=== PATIENT | male | born 1980 | race Caucasian/White ===

== ENCOUNTER 2018-01-07 13:44 | Inpatient (IN) | payer OTHER ==
[2018-01-07] MEDS ORDERED: Sodium Chloride 0.9% 1,000 ML IV ONE ×3 (14:15→20:54)
[2018-01-07] MEDS ORDERED: Sodium Chloride 0.9% 1,000 ML ONE ×2 (14:26→14:57)
[2018-01-07 14:35] LABS: BASO # 0.1 K/uL (0.0-0.2); BASO % 0.7 % (0.0-2.0); LYMPH # 0.2 K/uL (1.0-4.3); LYMPH % 1.2 % (20.0-40.0); MEAN CELL VOLUME 86.8 fL (80.0-94.0); MEAN CORPUSCULAR HEMOGLOBIN 30.1 pg (27.0-31.0); MEAN CORPUSCULAR HGB CONC 34.7 g/dL (33.0-37.0); MEAN PLATELET VOLUME 9.9 fL (7.2-11.7); MONO # 0.8 K/uL (0.0-0.8); NEUT # 18.7 K/uL (1.8-7.0); NEUT % 94.1 % (50.0-75.0); NRBC % 0.1 % (0.0-2.0); PLATELET COUNT 237 K/uL (130-400); RBC 5.31 Mil/uL (4.40-5.90); RED CELL DISTRIBUTION WIDTH 12.7 % (11.5-14.5); WHITE BLOOD COUNT 19.8 K/uL (4.8-10.8)
[2018-01-07 14:40] LABS: PROTHROMBIN TIME 11.2 SECONDS (9.7-12.2)
[2018-01-07 14:44] LABS: ALB/GLOB RATIO 1.3 (1.0-2.1); ALBUMIN 4.9 g/dL (3.5-5.0); ALT/SGPT 52 U/L (21-72); AST/SGOT 95 U/L (17-59); BLOOD UREA NITROGEN 16 mg/dL (9-20); GFR AFRICAN-AMERICAN 55; GFR NON-AFRICAN AMERICAN 45; LIPASE 90 U/L (23-300)
[2018-01-07] MEDS ORDERED: Iohexol 350mg/ml 100 ML ONE (14:57)
[2018-01-07 15:02] LABS: BANDS 3 % (0-2); LYMPHOCYTE 1 % (20-40); MONOCYTE 4 % (0-10); NEUTROPHIL 92 % (50-75); TOTAL CELLS COUNTED 100
[2018-01-07 15:03] LABS: PLATELET ESTIMATE NORMAL (NORMAL)
[2018-01-07 15:05] LABS: ANISOCYTOSIS SLIGHT; GIANT PLATELETS PRESENT; POLYCHROMIC SLIGHT
[2018-01-07 15:06] LABS: LARGE PLATELETS PRESENT
--- NOTE | 2018-01-07 15:33 | RAD ---
HISTORY: adm COMPARISON: No prior. FINDINGS: LUNGS: Right basilar atelectasis and or infiltrate. Questionable small right-sided effusion. Minimal left basilar atelectasis. PLEURA: As above. No apparent pneumothorax CARDIOVASCULAR: Normal. OSSEOUS STRUCTURES: No significant abnormalities. VISUALIZED UPPER ABDOMEN: Normal. OTHER FINDINGS: None. IMPRESSION: Right lower lobe atelectasis and or infiltrate with questionable small right-sided effusion. Minimal left basilar atelectasis.
--- NOTE | 2018-01-07 16:11 | C.PDOC ---
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 Patient underwent botox surgery to his rectal area four days ago for anal fissures. Patient notes he has been asymptomatic since then. He reports back pain (unchanged from usual) and denies fever, chills, cough. + recent travel though not to endemic population areas. Time Seen by Provider: 01/07/18 13:49 Chief Complaint (Nursing): GI Problem History Per: Patient History/Exam Limitations: no limitations Onset/Duration Of Symptoms: Hrs (4) Current Symptoms Are (Timing): Still Present Additional History Per: Patient Past Medical History Reviewed: Historical Data, Nursing Documentation, Vital Signs Vital Signs: Last Vital Signs Temp 98.6 F 01/07/18 18:08 Pulse 71 01/07/18 18:30 Resp 18 01/07/18 18:08 BP 126/81 01/07/18 18:08 Pulse Ox 99 01/07/18 23:27 - Medical History PMH: No Chronic Diseases Surgical History: No Surg Hx Family History: States: Unknown Family Hx - Social History Hx Alcohol Use: Yes Hx Substance Use: No - Immunization History Hx Influenza Vaccination: No Review Of Systems Constitutional: Negative for: Fever, Chills Gastrointestinal: Positive for: Hematemesis Musculoskeletal: Positive for: Back Pain Physical Exam - Physical Exam Appears: Non-toxic, No Acute Distress, Chronically Ill Skin: Warm, Dry, Other (icteric ) Head: Atraumatic, Normacephalic Nose: Other (dry blood noted ) Oral Mucosa: Moist, Other (dry blood noted ) Neck: Supple Chest: Symmetrical, No Deformity, No Tenderness Cardiovascular: Rhythm Regular, No Murmur Respiratory: Normal Breath Sounds, No Rales, No Rhonchi, No Wheezing Gastrointestinal/Abdominal: Soft, No Tenderness, No Guarding, No Rebound Rectal: No Other (perineal pain ) Extremity: Normal ROM, Capillary Refill (less than 2 seconds ) Neurological/Psych: Oriented x3, Normal Speech, Normal Cognition ED Course And Treatment - Laboratory Results Result Diagrams: 01/07/18 14:23 01/07/18 14:23 Lab Interpretation: Abnormal ECG: Interpreted By Me ECG Rhythm: Sinus Rhythm ECG Interpretation: Normal Rate From EC O2 Sat by Pulse Oximetry: 99 (on RA) Pulse Ox Interpretation: Normal - Radiology CXR: Interpreted by Me CXR Interpretation: Yes: No Acute Disease, Infiltrates (+RLL) Progress Note: protonix, rocephin, azithro, IVF's Reevaluation Time: 16:47 Reassessment Condition: Improved - Physician Consult Information Outcome Of Conversation: 1645: d/w Dr. Holden, Medicine [employer], ok to admit. Medical Decision Making Medical Decision Making: RLL PNA on CXR leukocytosis ? related to pna or vomiting mild infiltrate on RLL may be minimal due to dehydration May explain pt so ill appearing empiric ABX coverage for CAP Upper GIB: hematemasis normal hgb enlarged liver on CT, hiatal hernia HGB 16 false normal from dehydration vs not sig GIB ? underlying ETOH abuse Protonix, NPO, IVF's, 2 large bore IV, GI consult, follow CBC Acute renal insuffiency: Creat 1.7 from normal baseline (unknown) but pt had elective surgery 4 days ago, so implied it was normal) PT clinically dry continue hydration follow CMP Tox: ? ETOH abuse: ETOH level zero today AST/ALT 95/52 ? 2:1 ratio typical of alcohol abuse consider CIWA protocol or PRN benzo's if/when pt becomes symptomatic. Disposition Doctor Will See Patient In The: Hospital Counseled Patient/Family Regarding: Studies Performed, Diagnosis - Disposition Disposition: HOSPITALIZED Disposition Time: 16:52 Condition: GOOD - Clinical Impression Clinical Impression: Gastrointestinal hemorrhage, Acute renal insufficiency, Pneumonia - Scribe Statement The provider has reviewed the documentation as recorded by the Jeanethibe (Marisol Smith) Provider Attestation: All medical record entries made by the Jeanethibe were at my direction and personally dictated by me. I have reviewed the chart and agree that the record accurately reflects my personal performance of the history, physical exam, medical decision making, and the department course for this patient. I have also personally directed, reviewed, and agree with the discharge instructions and disposition.
--- NOTE | 2018-01-07 16:20 | CT ---
PROCEDURE: CT abdomen pelvis 01/07/2018 HISTORY: Vomiting; rectal botox 4 days ago-fissure. COMPARISON: No prior study available for comparison TECHNIQUE: Contiguous axial images of the abdomen and pelvis performed without oral or intravenous contrast material. Additional 2D sagittal and coronal reformats generated. This CT exam was performed using one or more of the following dose reduction techniques: Automated exposure control, adjustment of the mA and/or kV according to patient size, and/or use of iterative reconstruction technique. Radiation dose: Total exam DLP = 577.66 mGy-cm. This CT exam was performed using one or more of the following dose reduction techniques: Automated exposure control, adjustment of the mA and/or kV according to patient size, and/or use of iterative reconstruction technique. . FINDINGS: LOWER THORAX: Mild atelectasis both lung bases right greater than left. No evidence of basilar pneumothorax. No significant effusion Small hiatal hernia with slight wall thickening of the distal esophagus likely due to protrusion of gastric mucosa. Possibility of esophagitis not excluded. LIVER: Liver is enlarged measuring just over 20 cm in CC dimension. No obvious hepatic mass or collection seen on this noncontrast study. GALLBLADDER AND BILE DUCTS: Gallbladder is physiologically distended. No evidence of intraluminal gallbladder calculi. PANCREAS: Pancreas appears slightly atrophic and fatty replaced. No pancreatic masses collections or calcifications. SPLEEN: Spleen is borderline/mildly enlarged measuring 12 0.2 cm. No splenic mass collection or calcification ADRENALS: No adrenal lesions. KIDNEYS AND URETERS: Kidneys demonstrate relatively symmetric size. No evidence of nephrolithiasis or hydronephrosis. BLADDER: Urinary bladder is physiologically distended. No evidence of intraluminal urinary bladder calculi. REPRODUCTIVE: Prostate gland measures approximately 4.6 cm in transverse dimension. APPENDIX: Normal appendix best seen on coronal image number [id number]. No periappendiceal inflammatory changes. BOWEL: Evaluation of the bowel is limited due to the lack of oral contrast material. Stomach is incompletely distended which in part accounts for thick-walled appearance. Gastritis not excluded. Visualized loops of small bowel exhibit normal contour and caliber. No evidence of acute mechanical small bowel obstruction. A moderate amount of dry stool seen throughout the large bowel consistent with constipation. No definitive evidence of abnormal mural wall thickening. PERITONEUM: Unremarkable. No fluid collection. No free air. There is tiny fat containing umbilical hernia. The the the LYMPH NODES: There are a few small mesenteric lymph nodes the the right abdomen nonspecific. VASCULATURE: Unremarkable. No aortic aneurysm. BONES: No fracture or destructive lesion. OTHER FINDINGS: None. IMPRESSION: Mild atelectasis both lung bases right greater than left. Mild hepatomegaly. Borderline /mild splenomegaly as above. Findings consistent with constipation. . Small hiatal hernia with slight wall thickening of the distal esophagus likely due to protrusion of gastric mucosa. Esophagitis not excluded. .
[2018-01-07 16:21] LABS: SQUAMOUS EPITHIAL < 1 /hpf (0-5); URINE AMORPHOUS SEDIMENT RARE /ul (<OCC); URINE BACTERIA OCC (<OCC); URINE BILIRUBIN NEGATIVE (NEGATIVE); URINE BLOOD 3+ (NEGATIVE); URINE CLARITY Hazy (Clear); URINE COLOR Yellow (YELLOW); URINE GLUCOSE (UA) 3+ mg/dL (Normal); URINE LEUKOCYTE ESTERASE NEG Leu/uL (Negative); URINE PROTEIN 2+ mg/dL (NEGATIVE); URINE UROBILINOGEN NORMAL mg/dL (0.2-1.0)
[2018-01-07 16:26] LABS: BARBITURATES, UR NEGATIVE (NEGATIVE); BENZODIAZEPINES, UR NEGATIVE (NEGATIVE); OPIATES, UR NEGATIVE (NEGATIVE); PHENCYCLIDINE, UR NEGATIVE (NEGATIVE)
[2018-01-07] MEDS ORDERED: Azithromycin 500 MG in Sodium Chloride 0.9% 250 ML IV STA (16:41)
[2018-01-07] MEDS ORDERED: cefTRIAXone IV 1 gm in Dextros 50 ML IV ONE (16:41)
[2018-01-07] MEDS ORDERED: Dextrose 5%/0.9% NS 1,000 ML IV SCH (17:15)
[2018-01-07] MEDS ORDERED: Sodium Chloride 0.9% 1,000 ML IV SCH (21:00)
[2018-01-07] MEDS: Dextrose 5%/0.9% NS 1,000 ML IV SCH (21:15)
[2018-01-08] MEDS: Dextrose 5%/0.9% NS 1,000 ML IV SCH ×3 (04:00→18:02)
[2018-01-08 07:51] LABS: INR 1.1; PROTHROMBIN TIME 12.2 SECONDS (9.7-12.2)
[2018-01-08 07:54] LABS: MEAN CELL VOLUME 88.4 fL (80.0-94.0); MEAN CORPUSCULAR HEMOGLOBIN 30.8 pg (27.0-31.0); MEAN CORPUSCULAR HGB CONC 34.9 g/dL (33.0-37.0); MEAN PLATELET VOLUME 10.8 fL (7.2-11.7); PLATELET COUNT 147 K/uL (130-400); RED CELL DISTRIBUTION WIDTH 12.7 % (11.5-14.5)
[2018-01-08 08:03] LABS: CALCIUM 7.8 mg/dl (8.6-10.4)
[2018-01-08] MEDS: Magnesium Citrate Oral SOL (300 ml) PO SCH ×2 (09:40→14:09)
[2018-01-08] MEDS: Azithromycin 500 MG in Sodium Chloride 0.9% 250 ML IVPB SCH (10:00)
--- NOTE | 2018-01-08 10:01 | PN ---
DATE: 01/08/2018 LOCATION: 652, bed A. SUBJECTIVE: This is a 37-year-old male seen and examined in rounds today, with complaint of abdominal pain, dyspepsia, nausea, but no reported active bleeding or vomiting this morning. The entire chart is reviewed including, but not limited to the most recent lab and radiology study results, current and the previous medication list, current and the previous medical events. Today's lab results still pending; however, the patient had leukocytosis at the time of the admission. The entire chart is reviewed including the radiology study results also. PHYSICAL EXAMINATION: GENERAL: A 37-year-old male, awake, alert, oriented. VITAL SIGNS: Temperature 99.3, heart rate 82, respiratory rate 20 to 22, blood pressure 120/66. HEENT: Showed mildly pale, dry oral mucous membranes. Nonicteric sclerae. LUNGS: Few scattered mild crepitation. Decreased air entry at bases. HEART: Positive S1 and S2. ABDOMEN: Soft with generalized tenderness. No mass or organomegaly. No rebound tenderness or guarding. RECTAL: The patient refused. EXTREMITIES: Without edema, clubbing or cyanosis. NEUROLOGIC: No reported new neurological deficits, sensory or motor. No reported focal deficits. IMPRESSION: 1. Hematemesis of coffee-ground material indicative of upper gastrointestinal tract bleeding, to rule out duodenal versus gastric ulcer, to rule out bleeding esophageal varices. 2. Reported history of alcohol abuse. 3. Mild hepatomegaly by radiology study results. 4. Abnormal CAT scan of the abdomen and pelvis. Please see official report. 5. Possible right lower lobe pneumonia with a small right-sided effusion. SUGGESTIONS: 1. Agree with your plan. 2. Liquid diet as tolerated. 3. Patient for upper endoscopy at a.m. 4. Further recommendations to follow. Neftaly Ochoa MD
[2018-01-08 10:34] LABS: ALB/GLOB RATIO 1.2 (1.0-2.1); ALBUMIN 3.5 g/dL (3.5-5.0); BILIRUBIN,DIRECT 0.4 mg/dL (0.0-0.4)
[2018-01-08 10:43] LABS: ANISOCYTOSIS SLIGHT; BANDS 5 % (0-2); LARGE PLATELETS PRESENT; LYMPHOCYTE 7 % (20-40); MONOCYTE 9 % (0-10); NEUTROPHIL 79 % (50-75); PLATELET ESTIMATE NORMAL (NORMAL); TOTAL CELLS COUNTED 100
--- NOTE | 2018-01-08 15:12 | CP.PCM.CON ---
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 Patient underwent botox surgery to his rectal area four days ago for anal fissures. Patient notes he has been asymptomatic since then. He reports back pain (unchanged from usual) and denies fever, chills, cough. last travel to [place] 1 month ago denies ill contacs claims to be social drinker lives alone works [employer] [employer] [employer] Review of Systems - Review of Systems All systems: reviewed and no additional remarkable complaints except - Constitutional Constitutional: As Per HPI - EENT Eyes: absent: As Per HPI, Blind Spots, Blurred Vision, Change in Vision, Decreased Night Vision, Diplopia, Discharge, Dry Eye, Exophthalmos, Floaters, Irritation, Itchy Eyes, Loss of Peripheral Vision, Pain, Photophobia, Requires Corrective Lenses, Sees Flashes, Spots in Vision, Tunnel Vision, Other Visual Disturbances, Loss of Vision, Other Ears: absent: As Per HPI, Decreased Hearing, Ear Discharge, Ear Pain, Tinnitus, Abnormal Hearing, Disequilibrium, Dizziness, Other Nose/Mouth/Throat: absent: As Per HPI, Epistaxis, Nasal Congestion, Nasal Discharge, Nasal Obstruction, Nasal Trauma, Nose Pain, Post Nasal Drip, Sinus Pain, Sinus Pressure, Bleeding Gums, Change in Voice, Dental Pain, Dry Mouth, Dysphagia, Halitosis, Hoarsness, Lip Swelling, Mouth Lesions, Mouth Pain, Odynophagia, Sore Throat, Throat Swelling, Tongue Swelling, Facial Pain, Neck Pain, Neck Mass, Other - Cardiovascular Cardiovascular: absent: As Per HPI, Acrocyanosis, Chest Pain, Chest Pain at Rest , Chest Pain with Activity, Claudication, Diaphoresis, Dyspnea, Dyspnea on Exertion, Edema, Irregular Heart Rhythm, Pain Radiating to Arm/Neck/Jaw, Leg Edema, Leg Ulcers, Lightheadedness, Orthopnea, Palpitations, Paroxysmal Nocturnal Dyspnea, Pedal Edema, Radiating Pain, Rapid Heart Rate, Slow Heart Rate, Syncope, Other - Respiratory Respiratory: As Per HPI, Cough - Gastrointestinal Gastrointestinal: As Per HPI, Abdominal Pain, Vomiting - Genitourinary Genitourinary: absent: As Per HPI, Change in Urinary Stream, Difficulty Urinating, Dysuria, Flank Pain, Hematuria, Pyuria, Nocturia, Urinary Incontinence, Urinary Frequency, Urinary Hesitance, Urinary Urgency, Voiding Freq/Small Amts, Freq UTI, Hx Renal/Bladder Calculi, Hx /Renal Surgery, Bladder Distension, Other - Musculoskeletal Musculoskeletal: absent: As Per HPI, Abnormal Gait, Arthralgias, Atrophy, Back Pain, Deformity, Joint Swelling, Limited Range of Motion, Loss of Height, Muscle Cramps, Muscle Weakness, Myalgias, Neck Pain, Numbness, Radiating Pain into Limb, Stiffness, Tingling, Other - Integumentary Integumentary: absent: As Per HPI, Acne, Alopecia, Bleeding Lesions, Change in Hair, Change in Nails, Change in Pigmentation, Changing Lesions, Dry Skin, Erythema, Furuncle, Hirsutism, Lesions, New Lesions, Non-Healing Lesions, Photosensitivity, Pruritus, Rash, Skin Pain, Skin Ulcer, Sores, Striae, Swelling , Unusual Bruising, Wounds, Jaundice, Other - Neurological Neurological: absent: As Per HPI, Abnormal Gait, Abnormal Hearing, Abnormal Movements, Abnormal Speech, Behavioral Changes, Burning Sensations, Confusion, Convulsions, Disequilibrium, Dizziness, Numbness, Focal Weakness, Frequent Falls , Headaches, Lack of Coordination, Loss of Vision, Memory Loss, Paresthesias, Radicular Pain, Restless Legs, Sensory Deficit, Syncope, Tingling, Tremor, Vertigo, Weakness, Other Visual Disturbances, Other - Psychiatric Psychiatric: absent: As Per HPI, Abnormal Sleep Pattern, Anhedonia, Anxiety, Auditory Hallucinations, Behavioral Changes, Change in Appetite, Change in Libido, Confusion, Depression, Difficulty Concentrating, Hallucinations, Homicidal Ideation, Hopelessness, Irritability, Memory Loss, Mood Swings, Panic Attacks, Paranoia, Suicidal Ideation, Visual Hallucinations, Tactile Hallucinations, Other - Endocrine Endocrine: absent: As Per HPI, Change in Body Appearance, Change in Libido, Cold Intolorance, Deepening of Voice, Excessive Sweating, Fatigue, Flushing, Heat Intolorance, Increase in Ring/Shoe/Hat Size, Palpitations, Polydipsia, Polyphagia, Polyuria, Other - Hematologic/Lymphatic Hematologic: absent: As Per HPI, Easy Bleeding, Easy Bruising, Lymphadenopathy, Other Past Patient History - Past Medical History & Family History Past Medical History?: No - Past Social History Smoking Status: Never Smoked - MUSCULOSKELETAL/RHEUMATOLOGICAL Hx Falls: No - PSYCHIATRIC Hx Substance Use: No - SURGICAL HISTORY Hx Surgeries: Yes Other/Comment: ANAL FISSURE - ANESTHESIA Hx Anesthesia: Yes Hx Anesthesia Reactions: No Hx Malignant Hyperthermia: No Has any member of the family had a problem w/ anesthesia?: No Meds Allergies/Adverse Reactions: Allergies Allergy/AdvReac Type Severity Reaction Status Date / Time No Known Allergies Allergy Verified 01/07/18 13:56 - Medications Medications: Current Medications Ceftriaxone Sodium 1 gm/ (Sodium Chloride) 100 mls @ 100 mls/hr IVPB Q24H JEANE PRN Reason: Protocol Last Admin: 01/08/18 12:00 Dose: 100 mls/hr Azithromycin 500 mg/ Sodium (Chloride) 250 mls @ 167 mls/hr IVPB Q24H JEANE PRN Reason: Protocol Last Admin: 01/08/18 10:00 Dose: 167 mls/hr Dextrose/Sodium Chloride (Dextrose 5%/0.9% Ns 1000 Ml) 1,000 mls @ 100 mls/hr IV .Q10H [facility] Last Admin: 01/08/18 06:38 Dose: Not Given Ondansetron HCl (Zofran Inj) 8 mg IVP Q6 JEANE Last Admin: 01/08/18 12:00 Dose: 8 mg Pantoprazole Sodium (Protonix Inj) 40 mg IVP BID [facility] Last Admin: 01/08/18 11:18 Dose: 40 mg Tramadol HCl (Ultram) 50 mg PO Q6 PRN PRN Reason: Pain, severe (8-10) Last Admin: 01/07/18 20:57 Dose: 50 mg Physical Exam - Constitutional Appears: Non-toxic, No Acute Distress - Head Exam Head Exam: ATRAUMATIC, NORMOCEPHALIC - Eye Exam Eye Exam: PERRL. absent: Scleral icterus - ENT Exam ENT Exam: Mucous Membranes Dry, Normal External Ear Exam - Neck Exam Neck exam: Negative for: Lymphadenopathy - Respiratory Exam Respiratory Exam: Decreased Breath Sounds, Rhonchi - Cardiovascular Exam Cardiovascular Exam: REGULAR RHYTHM, +S1, +S2 - GI/Abdominal Exam GI & Abdominal Exam: Diminished Bowel Sounds, Distended, Soft. absent: Rebound , Rigid, Tenderness - Rectal Exam Rectal Exam: Deferred - Exam Exam: NORMAL INSPECTION - Extremities Exam Extremities exam: Positive for: pedal pulses present. Negative for: calf tenderness, pedal edema, tenderness - Back Exam Back exam: absent: CVA tenderness (L), CVA tenderness (R), paraspinal tenderness - Neurological Exam Neurological exam: Alert, CN II-XII Intact, Oriented x3, Reflexes Normal - Psychiatric Exam Psychiatric exam: Depressed - Skin Skin Exam: Dry Results - Vital Signs Recent Vital Signs: Last Vital Signs Temp 98.3 F 01/08/18 07:15 Pulse 81 01/08/18 07:15 Resp 18 01/08/18 07:15 BP 110/70 01/08/18 07:15 Pulse Ox 97 01/08/18 07:15 - Labs Result Diagrams: 01/08/18 07:39 01/08/18 07:39 Labs: Laboratory Results - last 24 hr 01/07/18 01/07/18 01/07/18 15:41 15:41 Unknown WBC RBC Hgb Hct MCV MCH MCHC RDW Plt Count MPV Neutrophils % (Manual) Band Neutrophils % Lymphocytes % (Manual) Monocytes % (Manual) Platelet Estimate Large Platelets Anisocytosis (manual) PT INR APTT Sodium Potassium Chloride Carbon Dioxide Anion Gap BUN Creatinine Est GFR ( Amer) Est GFR (Non-Af Amer) Random Glucose Calcium Total Bilirubin Direct Bilirubin AST ALT Alkaline Phosphatase Total Protein Albumin Globulin Albumin/Globulin Ratio Amylase Lipase Urine Color Yellow Urine Clarity Hazy Urine pH 5.0 Ur Specific Viola 1.009 Urine Protein 2+ H Urine Glucose (UA) 3+ H Urine Ketones Negative Urine Blood 3+ H Urine Nitrate Negative Urine Bilirubin Negative Urine Urobilinogen Normal Ur Leukocyte Esterase Neg Urine WBC (Auto) < 1 Urine RBC (Auto) 31 H Ur Squamous Epith Cells < 1 Amorphous Sediment Rare H Urine Bacteria Occ H Urine Opiates Screen Negative Urine Methadone Screen Negative Ur Barbiturates Screen Negative Ur Phencyclidine Scrn Negative Ur Amphetamines Screen Negative U Benzodiazepines Scrn Negative U Oth Cocaine Metabols Negative U Cannabinoids Screen Negative Influenza Typ A,B (EIA) Negative for flu a/b 01/08/18 01/08/18 01/08/18 07:39 07:39 07:39 WBC 15.0 H RBC 4.20 L Hgb 13.0 D Hct 37.1 MCV 88.4 MCH 30.8 MCHC 34.9 RDW 12.7 Plt Count 147 MPV 10.8 Neutrophils % (Manual) 79 H Band Neutrophils % 5 H Lymphocytes % (Manual) 7 L Monocytes % (Manual) 9 Platelet Estimate Normal Large Platelets Present Anisocytosis (manual) Slight PT 12.2 INR 1.1 APTT 28 Sodium 141 Potassium 4.3 Chloride 110 H Carbon Dioxide 20 L Anion Gap 16 BUN 19 Creatinine 2.3 H Est GFR ( Amer) 38 Est GFR (Non-Af Amer) 32 Random Glucose 105 Calcium 7.8 L Total Bilirubin 0.8 Direct Bilirubin 0.4 AST 506 H D ALT 123 H D Alkaline Phosphatase 41 Total Protein 6.4 Albumin 3.5 D Globulin 2.9 Albumin/Globulin Ratio 1.2 Amylase 83 Lipase 45 Urine Color Urine Clarity Urine pH Ur Specific Viola Urine Protein Urine Glucose (UA) Urine Ketones Urine Blood Urine Nitrate Urine Bilirubin Urine Urobilinogen Ur Leukocyte Esterase Urine WBC (Auto) Urine RBC (Auto) Ur Squamous Epith Cells Amorphous Sediment Urine Bacteria Urine Opiates Screen Urine Methadone Screen Ur Barbiturates Screen Ur Phencyclidine Scrn Ur Amphetamines Screen U Benzodiazepines Scrn U Oth Cocaine Metabols U Cannabinoids Screen Influenza Typ A,B (EIA) Assessment & Plan (1) Acute renal insufficiency Status: Acute (2) Gastrointestinal hemorrhage Status: Acute (3) Pneumonia Status: Acute - Assessment and Plan (Free Text) Assessment: r/o Legionella r/o aspiration syndrome abnormal LFT's- etoh ? viral ? hydration check cultures cont IV antibiotics serologies amylase/ lipase GI eval
[2018-01-08 17:32] LABS: BASO % 0.3 % (0.0-2.0); HEMOGLOBIN 13.1 g/dL (12.0-18.0); LYMPH # 0.9 K/uL (1.0-4.3); LYMPH % 7.6 % (20.0-40.0); MEAN CORPUSCULAR HEMOGLOBIN 30.4 pg (27.0-31.0); MEAN CORPUSCULAR HGB CONC 34.6 g/dL (33.0-37.0); MEAN PLATELET VOLUME 10.7 fL (7.2-11.7); MONO # 0.5 K/uL (0.0-0.8); MONO % 4.5 % (0.0-10.0); NEUT # 10.4 K/uL (1.8-7.0); NEUT % 87.6 % (50.0-75.0); PLATELET COUNT 143 K/uL (130-400); RBC 4.32 Mil/uL (4.40-5.90); RED CELL DISTRIBUTION WIDTH 12.6 % (11.5-14.5); WHITE BLOOD COUNT 11.9 K/uL (4.8-10.8)
[2018-01-08 17:58] LABS: LYMPHOCYTE 6 % (20-40); MONOCYTE 4 % (0-10); NEUTROPHIL 90 % (50-75); TOTAL CELLS COUNTED 100
[2018-01-08 17:59] LABS: ANISOCYTOSIS SLIGHT; LARGE PLATELETS PRESENT; PLATELET ESTIMATE NORMAL (NORMAL)
[2018-01-08 18:17] LABS: HEPATITIS B SURFACE AG Negative (NEGATIVE)
[2018-01-08 18:21] LABS: ALB/GLOB RATIO 1.1 (1.0-2.1); ALBUMIN 3.4 g/dL (3.5-5.0); CALCIUM 8.4 mg/dl (8.6-10.4)
[2018-01-08 18:23] LABS: HEPATITIS A IGM NEGATIVE (NEGATIVE); HEPATITIS B CORE AB NEGATIVE (NEGATIVE)
[2018-01-08 18:29] LABS: TROPONIN I 0.038 ng/mL (0.00-0.120)
[2018-01-08 18:35] LABS: HEPATITIS C ANTIBODY NEGATIVE (NEGATIVE)
[2018-01-08] MEDS: Dextrose 5%/0.45% NS 1,000 ML IV SCH (19:00)
--- NOTE | 2018-01-09 03:56 | CON ---
DATE: 01/07/2018 LOCATION: 652, Bed A. That is from Dr. Neftaly Ochoa to Dr. Alvaro Holden. I was called for GI consultation by the admitting medical team. The patient is seen and fully examined on 01/07/[address] Holden. The entire chart is reviewed including but not limited to the most recent lab and radiology study results, current and the previous medication list, current and the previous medical events, allergy to medication list as well as all the available current and the previous medical records. Case discussed with the staff at length. HISTORY OF PRESENT ILLNESS: This is a 37-year-old male who was admitted to the hospital through the emergency room with a main complaint of abdominal pain, nausea, vomiting of fresh and old blood, last alcohol intake was status post buttock surgery to the rectal area about 4 days ago for anal fissure but with a complaint of lower back pain, postprandial abdominal distention, generalized weakness, and malaise for the last few days prior to his admission. No reported actual chest pain, significant shortness of breath, chills, or fever. PAST MEDICAL HISTORY: As mentioned above, 1. Anal fissure. 2. Peptic ulcer disease. FAMILY HISTORY: Unrelated to specific GI disorder. SOCIAL HISTORY: Possible for alcohol intake but no substance abuse. CURRENT MEDICATIONS: Post admission medication reviewed. ALLERGIES TO MEDICATIONS: UNCLEAR. LABORATORY RESULTS: At the time of admission showed hemoglobin of 16, hematocrit 46.1 with leukocytosis of 19.8, increased creatinine 1.7. Reported abnormal liver function tests with increased AST 295 but ALT 252, most likely indicative of alcohol abuse. PHYSICAL EXAMINATION: GENERAL: A 37-year-old male appears to be awake and alert, complaining of severe abdominal pain with dyspepsia and nausea. VITAL SIGNS: Afebrile at the time seen by me with pulse of 68, respiratory rate 20 to 22, blood pressure 132/78. HEENT: Showed dry oral mucoid membrane. Nonicteric sclerae. LYMPH NODES: No lymphadenitis or lymphadenopathy. LUNGS: Clear breathing sounds are present bilaterally but decreased at the left base. HEART: Positive S1 and S2. ABDOMEN: Soft with mild generalized tenderness. No mass or organomegaly. No rebound tenderness or guarding. RECTAL: The patient refused. EXTREMITIES: Without significant clubbing, cyanosis, or edema. NEUROLOGIC: No reported new neurological deficits, sensory or motor. LABORATORY DATA: It has to be mentioned that the patient's x-ray was suggestive of atelectasis versus infiltrate. IMPRESSION: 1. Alcoholism with abnormal liver function tests 2. Hematemesis, to rule out gastric versus duodenal ulcer versus possible bleeding or esophageal varices. 3. Possible pneumonia by chest x-ray with leukocytosis. 4. Dehydration with hemoconcentration for which H and H appears to be normal. SUGGESTIONS: 1. Agree with your plan. 2. Proton pump inhibitors. 3. Reglan IV. 4. Abdominal ultrasound. 5. Serum lipase and amylase level. 6. Rehydration. 7. Flagyl IV. 8. Endoscopic evaluation of the upper GI tract when the patient is more stable clinically. Case discussed with the admitting staff at length. Thank you for letting me participate in your patient's case management. Neftaly Ochoa MD
[2018-01-09] MEDS: Dextrose 5%/0.45% NS 1,000 ML IV SCH (05:41)
[2018-01-09 08:28] LABS: COMPLEMENT C4 15.9 mg/dL (14.0-44.0)
[2018-01-09 08:46] LABS: ALB/GLOB RATIO 1.2 (1.0-2.1); ALBUMIN 3.4 g/dL (3.5-5.0)
[2018-01-09 08:47] LABS: CALCIUM 8.2 mg/dl (8.6-10.4)
[2018-01-09 08:49] LABS: CREATININE, RANDOM URINE 73.6 mg/dL
--- NOTE | 2018-01-09 09:07 | CP.PCM.PN ---
Subjective - Date & Time of Evaluation Date of Evaluation: 01/09/18 Time of Evaluation: 09:00 - Subjective Subjective: Progress Note for Dr. Holden Patient seen and examined at bedside with his friend present. No acute events reported overnight. Patient currently complains of pain on his tongue with white patches which he noticed since yesterday. Patient is aware of his NPO status for endoscopy later today. Patient denies fever, chills, headache, shortness of breath, chest pain, nausea, vomiting, or urinary symptoms. Objective - Vital Signs/Intake and Output Vital Signs (last 24 hours): Temp Pulse Resp BP Pulse Ox 98.2 F 76 18 129/81 97 01/09/18 07:30 01/09/18 07:30 01/09/18 07:30 01/09/18 07:30 01/09/18 07:30 Intake and Output: 01/09/18 01/09/18 06:59 18:59 Intake Total 1900 Output Total 300 Balance 1600 - Medications Medications: Current Medications Ceftriaxone Sodium 1 gm/ (Sodium Chloride) 100 mls @ 100 mls/hr IVPB Q24H JEANE PRN Reason: Protocol Last Admin: 01/08/18 12:00 Dose: 100 mls/hr Azithromycin 500 mg/ Sodium (Chloride) 250 mls @ 167 mls/hr IVPB Q24H JEANE PRN Reason: Protocol Last Admin: 01/08/18 10:00 Dose: 167 mls/hr Dextrose/Sodium Chloride (Dextrose 5%/0.45% Ns 1000 Ml) 1,000 mls @ 125 mls/hr IV .Q8H JEANE Last Admin: 01/09/18 05:41 Dose: 125 mls/hr Ondansetron HCl (Zofran Inj) 8 mg IVP Q6 JEANE Last Admin: 01/09/18 05:37 Dose: 8 mg Pantoprazole Sodium (Protonix Inj) 40 mg IVP BID JEANE Last Admin: 01/08/18 18:02 Dose: 40 mg Tramadol HCl (Ultram) 50 mg PO Q6 PRN PRN Reason: Pain, severe (8-10) Last Admin: 01/07/18 20:57 Dose: 50 mg - Labs Labs: 01/08/18 17:07 01/09/18 06:58 PT 12.2 SECONDS (9.7-12.2) 01/08/18 07:39 INR 1.1 01/08/18 07:39 APTT 28 SECONDS (21-34) 01/08/18 07:39 - Constitutional Appears: Non-toxic, No Acute Distress - Head Exam Head Exam: ATRAUMATIC, NORMOCEPHALIC - Eye Exam Eye Exam: EOMI, Normal appearance - ENT Exam Additional comments: Halitosis, white patches located at bilateral tongue base, unable to scrape off the lesion, no active bleeding or discharge - Neck Exam Neck Exam: absent: Lymphadenopathy - Respiratory Exam Respiratory Exam: NORMAL BREATHING PATTERN. absent: Wheezes, Respiratory Distress - Cardiovascular Exam Cardiovascular Exam: REGULAR RHYTHM, +S1, +S2 - GI/Abdominal Exam GI & Abdominal Exam: Soft. absent: Tenderness - Extremities Exam Extremities Exam: Normal Capillary Refill. absent: Joint Swelling, Tenderness - Neurological Exam Neurological Exam: Alert, Awake, Oriented x3 - Psychiatric Exam Psychiatric exam: Normal Affect, Normal Mood - Skin Skin Exam: Dry, Normal Color Assessment and Plan - Assessment and Plan (Free Text) Assessment: Upper GI bleed -No further reported hematemesis -Hgb 13.1 with hydration -Stool occult blood, leukocytes negative -Endoscopy shows small hiatal hernia, acute gastritis, and erythematous duodenopathy -Biopsy pending -Regular diet -GI consulted, Dr. De La Paz help appreciated Pneumonia -Afebrile, WBC 11.9, afternoon cbc pending -CXR shows RLL atelectasis/infiltrate -Rocephin 1gm IV, Azithromycin 50mg IV -Pending cultures -Rapid flu, Legionella, HIV negative -Pending mycoplasma Igm, pneumoniae AB Transaminitis -Likely secondary to recent anesthesia from -Protonix changed to pepcid -Hepatitis panel negative Rhabdomyolysis -Total Cr Kinase [id number] -Creatitine improving, today 1.9 -IVF NS @200ml/hr -Nephrology consulted, Dr. Garcia help appreciated -Follow up renal u/s -Further labs pending Oral candidiasis -HIV 1&2 negative -Magic mouthwash Q6h Prophylactic measures -Pepcid -SCD -Zofran Case discussed with attending physician, all management per Dr. Holden
--- NOTE | 2018-01-09 09:47 | HP ---
HISTORY OF PRESENT ILLNESS: A 37-year-old male, was complaining of coughing coffee-ground material with vomiting. The patient came to the ER, found to have painful throat, advised admission. The patient had botox injection. The patient had been drinking alcohol three days prior to admission . PHYSICAL EXAMINATION: GENERAL: The patient is awake, alert, and oriented. VITAL SIGNS: Temperature 98, pulse 90. HEENT: Within normal limits. NECK: Supple. CHEST: Symmetrical. HEART: Regular. ABDOMEN: Soft. EXTREMITIES: No edema. IMPRESSION: Pneumonia, chronic obstructive pulmonary disease. PLAN: The patient to get bed rest. Supportive care. Alvaro Holden MD
[2018-01-09] MEDS: Azithromycin 500 MG in Sodium Chloride 0.9% 250 ML IVPB SCH (10:33)
--- NOTE | 2018-01-09 12:21 | CARD ---
APPROVED REPORT EKG Measurement Heart [id number] <Conclusion> Normal sinus rhythm Normal ECG
[2018-01-09] MEDS: Mag&Al/Simet/Diphen/Lido 237 ML KIT MM SCH ×3 (12:24→18:03)
--- NOTE | 2018-01-09 12:34 | CP.PCM.PN ---
Subjective - Date & Time of Evaluation Date of Evaluation: 01/09/18 Time of Evaluation: 09:00 - Subjective Subjective: less fever on iv antibiotics CPK elevated- rhabdo Objective - Vital Signs/Intake and Output Vital Signs (last 24 hours): Temp Pulse Resp BP Pulse Ox 98.2 F 79 20 124/83 97 01/09/18 07:30 01/09/18 12:25 01/09/18 12:25 01/09/18 12:25 01/09/18 12:25 Intake and Output: 01/09/18 01/09/18 06:59 18:59 Intake Total 1900 Output Total 300 Balance 1600 - Medications Medications: Current Medications Famotidine (Pepcid) 20 mg PO Q12 JEANE Last Admin: 01/09/18 12:24 Dose: Not Given Ceftriaxone Sodium 1 gm/ (Sodium Chloride) 100 mls @ 100 mls/hr IVPB Q24H JEANE PRN Reason: Protocol Last Admin: 01/09/18 12:24 Dose: Not Given Azithromycin 500 mg/ Sodium (Chloride) 250 mls @ 167 mls/hr IVPB Q24H JEANE PRN Reason: Protocol Last Admin: 01/09/18 10:33 Dose: 167 mls/hr Sodium Chloride (Sodium Chloride 0.9%) 1,000 mls @ 200 mls/hr IV .Q5H JEANE Ondansetron HCl (Zofran Inj) 8 mg IVP Q6 JEANE Last Admin: 01/09/18 12:24 Dose: Not Given Saliva Substitute (First Magic Mouthwash) 5 ml MM Q6 JEANE Last Admin: 01/09/18 12:24 Dose: Not Given Tramadol HCl (Ultram) 50 mg PO Q6 PRN PRN Reason: Pain, severe (8-10) Last Admin: 01/07/18 20:57 Dose: 50 mg - Labs Labs: 01/08/18 17:07 01/09/18 06:58 PT 12.2 SECONDS (9.7-12.2) 01/08/18 07:39 INR 1.1 01/08/18 07:39 APTT 28 SECONDS (21-34) 01/08/18 07:39 - Constitutional Appears: Non-toxic, Chronically Ill - Head Exam Head Exam: NORMOCEPHALIC - Eye Exam Eye Exam: PERRL - ENT Exam ENT Exam: Mucous Membranes Dry - Neck Exam Neck Exam: absent: Lymphadenopathy - Respiratory Exam Respiratory Exam: Decreased Breath Sounds - Cardiovascular Exam Cardiovascular Exam: REGULAR RHYTHM - GI/Abdominal Exam GI & Abdominal Exam: Distended, Soft - Rectal Exam Rectal Exam: Deferred - Exam Exam: NORMAL INSPECTION Assessment and Plan (1) Acute renal insufficiency Status: Acute (2) Gastrointestinal hemorrhage Status: Acute (3) Pneumonia Status: Acute
[2018-01-09] MEDS ORDERED: Lactated Ringer's 1,000 ML IV ONE (13:17)
[2018-01-09] MEDS ORDERED: Propofol 10 mg/ml Inj (20 ML) ONE (13:21)
[2018-01-09] MEDS: Alum-Mag Hydrox-Simethicone Susp (30 mL) PO SCH ×2 (14:32→18:03)
[2018-01-09] MEDS: Sodium Chloride 0.9% 1,000 ML IV SCH ×2 (14:33→21:15)
--- NOTE | 2018-01-09 15:50 | CP.PCM.CON ---
History of Present Illness - History of Present Illness History of Present Illness: Nephrology Consultation Note: Assessment: critical Acute Kidney Injury (N17.9) likely due to severe rhabdomyolysis esophagitis and duodenitis on EGD severe non traumatic rhabdomyolysis r/o autoimmune causes, muscle enzymes deficiencies, genetic causes. proteinuria and microscopic hematuria Plan No acute need for renal replacement therapy at this time. BP controlled without meds No ACEI/ARB due to RADHA. Monitor Input/Output, daily weights and renal function with basic metabolic panel will start NS @ 200 ml/hr monitor CPK and lytes additional work up as ordered. depending upon results, later may consider further eval with rheum, neuro with EMG, muscle biopsy etc Dose meds/antibiotics for reduced GFR. Avoid fleets enema/magnesium based laxatives. Avoid nephrotoxins/NSAIDs/ iodinated contrast (unless needed emergently) Glycemic control Further work up/management as per primary team Thanks for allowing me to participate in care of your patient. Will follow patient with you. Please call if any Qs. d/w team Dr Armaan Garcia Office: [phone] CC: blood in vomitus reason for consult: renal insuff HPI: Pt is a 37 M without any known medical hx presented with c/o blood in vomitus. he also had undergone botox inj for anal fissure last tuesday. found to have RADHA now and hence renal consulted. also with very high CPK levels Denies OTC/herbal meds or NSAIDs No recent iodinated contrast exposure. No obvious episodes of low BP. denies drug abuse such as cocaine. utox was neg as well. non smoker. admits to etoh socially over weekend only. no such episode of rhabdo in past. denies physical exertion or muscle weakness/ aches. ROS: feels in usual health now. no complaints. Cardiovascular: No chest pain. Pulmonary: No shortness of breath Gastrointestinal: denies abdominal pain No nausea. No vomiting. wants to eat Genitourinary: No pain while urinating. Denies blood in urine. All other negative Physical Examination: General Appearance: Comfortable, in no acute respiratory distress, co-operative . Vitals reviewed and noted as below Head; Atraumatic, normocephalic ENT: no ulcers no thrush. Tongue is coated with ulcers at lateral edges of tongue. Oropharynx: no rash or ulcers. EYES: Pupils are equal, round and reactive to light accommodation. Eye muscles and extraocular movement intact. Sclera is anicteric. Neck; supple no lymphadenopathy, no thyromegaly or bruit Lungs: Normal respiratory rate/effort. Breath sounds bilateral equal and clear Heart: Normal rate. s1s2 normal. No rub or gallop. Extremities: no edema. No varicose veins Neurological: Patient is alert, awake and oriented to person, place and time. No focal deficit. Strength bilateral appropriate and equal Skin: Warm and dry. Normal turgor. No rash. Palpitation: Normal elasticity for age Abdomen: Abdomen is soft. Bowel sounds +. There is no abdominal tenderness, no guarding/rigidity no organomegaly Psych: normal insight and normal affect/mood MSK: no joint tenderness or swelling. Digits and nails normal, no deformity : kidney or bladder not palpable Labs/imaging reviewed. Past medical history, past surgical history, family history, social history, allergy reviewed and noted as below Family hx: no hx of CKD. Rest non-contributory renal imaging WNL UA 2+ protein and 3+ blood pr/cr 1.3 gram/day CPK [id number] at presentation HIV/Hep B and C negative. C3/c4 normal Past Patient History - Past Medical History & Family History Past Medical History?: No - Past Social History Smoking Status: Never Smoked - MUSCULOSKELETAL/RHEUMATOLOGICAL Hx Falls: No - PSYCHIATRIC Hx Substance Use: No - SURGICAL HISTORY Hx Surgeries: Yes Other/Comment: ANAL FISSURE - ANESTHESIA Hx Anesthesia: Yes Hx Anesthesia Reactions: No Hx Malignant Hyperthermia: No Has any member of the family had a problem w/ anesthesia?: No Meds Allergies/Adverse Reactions: Allergies Allergy/AdvReac Type Severity Reaction Status Date / Time No Known Allergies Allergy Verified 01/07/18 13:56 - Medications Medications: Current Medications Al Hydrox/Mg Hydrox/Simethicone (Maalox Plus 30 Ml) 30 ml PO TID [facility] Last Admin: 01/09/18 14:32 Dose: 30 ml Famotidine (Pepcid) 20 mg PO Q12 JEANE Last Admin: 01/09/18 12:24 Dose: Not Given Ceftriaxone Sodium 1 gm/ (Sodium Chloride) 100 mls @ 100 mls/hr IVPB Q24H JEANE PRN Reason: Protocol Last Admin: 01/09/18 14:32 Dose: 100 mls/hr Azithromycin 500 mg/ Sodium (Chloride) 250 mls @ 167 mls/hr IVPB Q24H JEANE PRN Reason: Protocol Last Admin: 01/09/18 10:33 Dose: 167 mls/hr Sodium Chloride (Sodium Chloride 0.9%) 1,000 mls @ 200 mls/hr IV .Q5H JEANE Last Admin: 01/09/18 14:33 Dose: 200 mls/hr Ondansetron HCl (Zofran Inj) 8 mg IVP Q6 JEANE Last Admin: 01/09/18 12:24 Dose: Not Given Saliva Substitute (First Magic Mouthwash) 5 ml MM Q6 JEANE Last Admin: 01/09/18 14:37 Dose: 5 ml Tramadol HCl (Ultram) 50 mg PO Q6 PRN PRN Reason: Pain, severe (8-10) Last Admin: 01/07/18 20:57 Dose: 50 mg Results - Vital Signs Recent Vital Signs: Last Vital Signs Temp 98.9 F 01/09/18 14:30 Pulse 72 01/09/18 14:30 Resp 18 01/09/18 14:30 BP 124/84 01/09/18 14:30 Pulse Ox 97 01/09/18 14:30 - Labs Result Diagrams: 01/08/18 17:07 01/09/18 06:58 Labs: Laboratory Results - last 24 hr 01/08/18 01/08/18 01/08/18 15:17 17:07 17:07 WBC RBC Hgb Hct MCV MCH MCHC RDW Plt Count MPV Neut % (Auto) Lymph % (Auto) Granite % (Auto) Eos % (Auto) Baso % (Auto) Neut # (Auto) Lymph # (Auto) Granite # (Auto) Eos # (Auto) Baso # (Auto) Neutrophils % (Manual) Lymphocytes % (Manual) Monocytes % (Manual) Platelet Estimate Large Platelets Anisocytosis (manual) Sodium Potassium Chloride Carbon Dioxide Anion Gap BUN Creatinine Est GFR ( Amer) Est GFR (Non-Af Amer) Random Glucose Calcium Total Bilirubin AST ALT Alkaline Phosphatase Total Creatine Kinase Troponin I Total Protein Albumin Globulin Albumin/Globulin Ratio Ur Random Creatinine U Random Total Protein Urine Microalbumin Stool Occult Blood Stool Leukocytes, Qual Negative Complement C3 Complement C4 Hepatitis A IgM Ab Negative Hep Bs Antigen Negative Hep B Core IgM Ab Negative Hepatitis C Antibody Negative HIV 1&2 Antibody Screen Negative Ur L.pneumophila Ag 01/08/18 01/08/18 01/08/18 17:07 17:07 21:00 WBC 11.9 H RBC 4.32 L Hgb 13.1 Hct 38.0 MCV 88.0 MCH 30.4 MCHC 34.6 RDW 12.6 Plt Count 143 MPV 10.7 Neut % (Auto) 87.6 H Lymph % (Auto) 7.6 L Granite % (Auto) 4.5 Eos % (Auto) 0.0 Baso % (Auto) 0.3 Neut # (Auto) 10.4 H Lymph # (Auto) 0.9 L Granite # (Auto) 0.5 Eos # (Auto) 0.0 Baso # (Auto) 0.0 Neutrophils % (Manual) 90 H Lymphocytes % (Manual) 6 L Monocytes % (Manual) 4 Platelet Estimate Normal Large Platelets Present Anisocytosis (manual) Slight Sodium 143 Potassium 4.4 Chloride 111 H Carbon Dioxide 22 Anion Gap 14 BUN 18 Creatinine 2.2 H Est GFR ( Amer) 41 Est GFR (Non-Af Amer) 33 Random Glucose 101 Calcium 8.4 L Total Bilirubin 0.9 AST 767 H D ALT 189 H D Alkaline Phosphatase 39 Total Creatine Kinase Troponin I 0.0380 Total Protein 6.4 Albumin 3.4 L Globulin 3.0 Albumin/Globulin Ratio 1.1 Ur Random Creatinine U Random Total Protein Urine Microalbumin Stool Occult Blood Stool Leukocytes, Qual Complement C3 Complement C4 Hepatitis A IgM Ab Hep Bs Antigen Hep B Core IgM Ab Hepatitis C Antibody HIV 1&2 Antibody Screen Ur L.pneumophila Ag Negative 01/08/18 01/09/18 01/09/18 21:00 06:00 06:00 WBC RBC Hgb Hct MCV MCH MCHC RDW Plt Count MPV Neut % (Auto) Lymph % (Auto) Granite % (Auto) Eos % (Auto) Baso % (Auto) Neut # (Auto) Lymph # (Auto) Granite # (Auto) Eos # (Auto) Baso # (Auto) Neutrophils % (Manual) Lymphocytes % (Manual) Monocytes % (Manual) Platelet Estimate Large Platelets Anisocytosis (manual) Sodium Potassium Chloride Carbon Dioxide Anion Gap BUN Creatinine Est GFR ( Amer) Est GFR (Non-Af Amer) Random Glucose Calcium Total Bilirubin AST ALT Alkaline Phosphatase Total Creatine Kinase Troponin I Total Protein Albumin Globulin Albumin/Globulin Ratio Ur Random Creatinine 73.6 U Random Total Protein 99.0 H Urine Microalbumin 103.1 H Stool Occult Blood Negative Stool Leukocytes, Qual Complement C3 Complement C4 Hepatitis A IgM Ab Hep Bs Antigen Hep B Core IgM Ab Hepatitis C Antibody HIV 1&2 Antibody Screen Ur L.pneumophila Ag 01/09/18 01/09/18 01/09/18 06:35 06:58 06:58 WBC RBC Hgb Hct MCV MCH MCHC RDW Plt Count MPV Neut % (Auto) Lymph % (Auto) Granite % (Auto) Eos % (Auto) Baso % (Auto) Neut # (Auto) Lymph # (Auto) Granite # (Auto) Eos # (Auto) Baso # (Auto) Neutrophils % (Manual) Lymphocytes % (Manual) Monocytes % (Manual) Platelet Estimate Large Platelets Anisocytosis (manual) Sodium 143 Potassium 4.2 Chloride 110 H Carbon Dioxide 23 Anion Gap 14 BUN 16 Creatinine 1.9 H Est GFR ( Amer) 48 Est GFR (Non-Af Amer) 40 Random Glucose 120 H Calcium 8.2 L Total Bilirubin 1.0 AST 1148 H ALT 276 H D Alkaline Phosphatase 40 Total Creatine Kinase [id number] H Troponin I Total Protein 6.3 Albumin 3.4 L Globulin 2.9 Albumin/Globulin Ratio 1.2 Ur Random Creatinine 76.0 U Random Total Protein Urine Microalbumin Stool Occult Blood Stool Leukocytes, Qual Complement C3 92.0 Complement C4 15.9 Hepatitis A IgM Ab Hep Bs Antigen Hep B Core IgM Ab Hepatitis C Antibody HIV 1&2 Antibody Screen Ur L.pneumophila Ag
--- NOTE | 2018-01-09 16:32 | US ---
PROCEDURE: Ultrasound of the Kidneys HISTORY: Renal insufficiency COMPARISON: Comparison made with prior CT scan abdomen pelvis 01/07/2018 TECHNIQUE: Sonogram of the kidneys. FINDINGS: RIGHT KIDNEY: Measures: 10.1 x 5.2 x 6.3 cm. Normal in size and contour. Increased echogenicity consistent with this patient's history of renal insufficiency. No discrete calculus seen. No solid mass lesion or hydronephrosis visualized. LEFT KIDNEY: Measures: 10.0 x 6.0 x 5.8 cm. Normal size and contour. Increased echogenicity consistent with this patient's history of renal insufficiency. Questionable vascular calcifications. No solid mass lesion or hydronephrosis visualized. OTHER FINDINGS: None. IMPRESSION: Echogenic kidneys consistent with this patient's history of renal insufficiency. No evidence hydronephrosis.
[2018-01-09 17:07] LABS: INR 1.1; PROTHROMBIN TIME 11.9 SECONDS (9.7-12.2)
[2018-01-09 20:47] LABS: URINE BACTERIA FEW (<OCC); URINE BILIRUBIN NEGATIVE (NEGATIVE); URINE BLOOD 3+ (NEGATIVE); URINE CLARITY Clear (Clear); URINE COLOR Yellow (YELLOW); URINE GLUCOSE (UA) NORMAL (Normal); URINE HYALINE CAST 0-2 /lpf (0-2); URINE LEUKOCYTE ESTERASE TRACE Leu/uL (Negative); URINE PROTEIN 1+ mg/dL (NEGATIVE); URINE UROBILINOGEN NORMAL mg/dL (0.2-1.0)
[2018-01-10] MEDS: Mag&Al/Simet/Diphen/Lido 237 ML KIT MM SCH ×4 (01:37→12:32)
[2018-01-10] MEDS: Sodium Chloride 0.9% 1,000 ML IV SCH ×5 (01:38→22:30)
[2018-01-10 06:25] LABS: BASO % 0.3 % (0.0-2.0); EOS % 0.2 % (0.0-4.0); HEMOGLOBIN 13.7 g/dL (12.0-18.0); LYMPH # 1.1 K/uL (1.0-4.3); MEAN CELL VOLUME 86.9 fL (80.0-94.0); MEAN CORPUSCULAR HEMOGLOBIN 30.8 pg (27.0-31.0); MEAN CORPUSCULAR HGB CONC 35.5 g/dL (33.0-37.0); MEAN PLATELET VOLUME 9.9 fL (7.2-11.7); MONO # 0.4 K/uL (0.0-0.8); MONO % 5.5 % (0.0-10.0); NEUT # 6.1 K/uL (1.8-7.0); RBC 4.43 Mil/uL (4.40-5.90); RED CELL DISTRIBUTION WIDTH 12.4 % (11.5-14.5); WHITE BLOOD COUNT 7.6 K/uL (4.8-10.8)
--- NOTE | 2018-01-10 06:25 | CP.PCM.PN ---
Subjective - Date & Time of Evaluation Date of Evaluation: 01/10/18 Time of Evaluation: 06:22 - Subjective Subjective: PGY-[address] Holden's service: Patient seen and examined at bedside. Nursing reports no acute events overnight. Patient admits muscle soreness today, but states his urine color is improving and is much clearer after starting fluids. Admits being able to walk without difficulty. Denies SOB, chest pain, or palpitations. Objective - Vital Signs/Intake and Output Vital Signs (last 24 hours): Temp Pulse Resp BP Pulse Ox 98.6 F 88 20 138/87 95 01/09/18 23:15 01/09/18 23:15 01/09/18 23:15 01/09/18 23:15 01/09/18 23:15 Intake and Output: 01/09/18 01/10/18 18:59 06:59 Intake Total 2100 Output Total 2200 Balance -100 - Medications Medications: Current Medications Al Hydrox/Mg Hydrox/Simethicone (Maalox Plus 30 Ml) 30 ml PO TID JEANE Last Admin: 01/09/18 18:03 Dose: 30 ml Famotidine (Pepcid) 20 mg PO Q12 JEANE Last Admin: 01/09/18 21:15 Dose: 20 mg Ceftriaxone Sodium 1 gm/ (Sodium Chloride) 100 mls @ 100 mls/hr IVPB Q24H JEANE PRN Reason: Protocol Last Admin: 01/09/18 14:32 Dose: 100 mls/hr Azithromycin 500 mg/ Sodium (Chloride) 250 mls @ 167 mls/hr IVPB Q24H JEANE PRN Reason: Protocol Last Admin: 01/09/18 10:33 Dose: 167 mls/hr Sodium Chloride (Sodium Chloride 0.9%) 1,000 mls @ 200 mls/hr IV .Q5H JEANE Last Admin: 01/10/18 01:38 Dose: 200 mls/hr Ondansetron HCl (Zofran Inj) 8 mg IVP Q6 JEANE Last Admin: 01/10/18 06:01 Dose: 8 mg Saliva Substitute (First Magic Mouthwash) 5 ml MM Q6 JEANE Last Admin: 01/10/18 06:00 Dose: 5 ml Tramadol HCl (Ultram) 50 mg PO Q6 PRN PRN Reason: Pain, severe (8-10) Last Admin: 01/07/18 20:57 Dose: 50 mg - Labs Labs: 01/08/18 17:07 01/09/18 06:58 PT 11.9 SECONDS (9.7-12.2) 01/09/18 16:44 INR 1.1 01/09/18 16:44 APTT 29 SECONDS (21-34) 01/09/18 16:44 - Additional Findings Additional findings: - Constitutional Appears: Non-toxic, No Acute Distress - Head Exam Head Exam: ATRAUMATIC, NORMOCEPHALIC - Eye Exam Eye Exam: EOMI, Normal appearance - ENT Exam Additional comments: Halitosis, white patches located at bilateral tongue base, unable to scrape off the lesion, no active bleeding or discharge - Neck Exam Neck Exam: absent: Lymphadenopathy - Respiratory Exam Respiratory Exam: NORMAL BREATHING PATTERN. absent: Wheezes, Respiratory Distress - Cardiovascular Exam Cardiovascular Exam: REGULAR RHYTHM, +S1, +S2 - GI/Abdominal Exam GI & Abdominal Exam: Soft. absent: Tenderness - Extremities Exam Extremities Exam: Normal Capillary Refill. absent: Joint Swelling, Tenderness - Neurological Exam Neurological Exam: Alert, Awake, Oriented x3 - Psychiatric Exam Psychiatric exam: Normal Affect, Normal Mood - Skin Skin Exam: Dry, Normal Color Assessment and Plan - Assessment and Plan (Free Text) Plan: Rhabdomyolysis -Total Cr Kinase approx same today ~160k -Creatitine improving, today 1.6 -IVF NS @200ml/hr -Nephrology consulted, Dr. Garcia help appreciated -renal u/s: No hydronephrosis. Echogenic kidneys c/w pt's hx of renal insufficiency f/u AI serology RADHA Etiology: 2/2 Rhabdo Cr 2.3 on admission, 1.6 today -IVF NS @200ml/hr -Nephrology consulted, Dr. Garcia help appreciated -renal u/s: No hydronephrosis. Echogenic kidneys c/w pt's hx of renal insufficiency Pneumonia -Afebrile, WBC WNL today -CXR shows RLL atelectasis/infiltrate -Rocephin 1gm IV, Azithromycin 500mg IV -Blood cultures negative x 48 hours -Rapid flu, Legionella, HIV, - all negative -Pending mycoplasma Igm, pneumoniae AB Transaminitis Increasing AST/ALT Dr. De La Paz, GI research consultant -Protonix changed to pepcid -Hepatitis panel negative ? hx of EtOH abuse Upper GI bleed Resolved -No further reported hematemesis -Hgb 13.7 today -Stool occult blood, leukocytes, O&P negative -Endoscopy shows small hiatal hernia, acute gastritis, and erythematous duodenopathy -Biopsy pending -Regular diet -GI consulted, Dr. De La Paz help appreciated Oral candidiasis -HIV 1&2 negative -Magic mouthwash discontinued, start nystatin Prophylactic measures -Pepcid -SCD -Lalo Barros PGY-2 All management per Adina
[2018-01-10 06:48] LABS: ALB/GLOB RATIO 1.2 (1.0-2.1); ALBUMIN 3.3 g/dL (3.5-5.0); CALCIUM 8.4 mg/dl (8.6-10.4)
--- NOTE | 2018-01-10 10:19 | PN ---
DATE: 01/10/2018 LOCATION: 652, bed A. SUBJECTIVE: This is a 37-year-old male seen and examined in rounds earlier this morning, post upper endoscopy with biopsy yesterday with reported less abdominal pain. No reported active bleeding, tolerating oral intake well. Gastric biopsy pathology report is still pending. The patient denied any actual chest pain, significant palpitation, or shortness of breath. No chills or fever. His stool for occult blood is reported to be negative. The entire chart is reviewed, including but not limited to the most recent lab and radiology study results, current and the previous medication list, current and the previous medical events. Today's lab showed normal CBC, with creatinine 1.6, calcium 8.4, with AST increased to 1244, ALT 371 consistent with the patient's known history of alcoholism with alcoholic liver disease, with albumin 3.3, with increased urine total protein and microalbumin. Mononucleosis reported to be negative as well as all the hepatitis profile and HIV antibody. PHYSICAL EXAMINATION: GENERAL: A 37-year-old male, awake, alert, and oriented. VITAL SIGNS: Afebrile, with pulse of 86, respiratory rate of 20 to 22, blood pressure 132/84. HEENT: Showed mildly pale, dry, oral mucous membranes. Nonicteric sclerae. LUNGS: Few scattered mild crepitations. Breathing sounds are present bilaterally. HEART: Positive S1 and S2. ABDOMEN: Soft, with mild generalized tenderness. No mass or organomegaly. No rebound tenderness or guarding. EXTREMITIES: Without significant clubbing, cyanosis, or edema. NEUROLOGIC: No reported new neurological deficits, sensory or motor. IMPRESSION: 1. Recent history of upper gastrointestinal bleeding, subsided. 2. Evidence of acute pancreatitis with duodenitis by upper endoscopy. 3. Alcoholism with alcoholic liver disease and abnormal liver function tests that could be also secondary to the patient's recently diagnosed pneumonia. 4. Pneumonia by recent history. 5. Oral candidiasis by recent history. 6. Hepatomegaly by radiology study results. SUGGESTIONS: 1. Continue current management. 2. Rehydration. 3. Advance diet. 4. Followup on liver function tests. 5. No further aggressive GI workup in the meantime. Neftaly Ochoa MD [facility] # [id number]
--- NOTE | 2018-01-10 10:31 | CP.PCM.PN ---
Subjective - Date & Time of Evaluation Date of Evaluation: 01/10/18 Time of Evaluation: 09:00 - Subjective Subjective: results noted awake alert denies fever cpk still hi renal on board cultures neg Objective - Vital Signs/Intake and Output Vital Signs (last 24 hours): Temp Pulse Resp BP Pulse Ox 97.9 F 78 18 118/74 97 01/10/18 07:00 01/10/18 07:00 01/10/18 07:00 01/10/18 07:00 01/10/18 07:00 Intake and Output: 01/10/18 01/10/18 06:59 18:59 Intake Total 2100 Output Total 2200 Balance -100 - Medications Medications: Current Medications Al Hydrox/Mg Hydrox/Simethicone (Maalox Plus 30 Ml) 30 ml PO TID [facility] Last Admin: 01/09/18 18:03 Dose: 30 ml Famotidine (Pepcid) 20 mg PO Q12 [facility] Last Admin: 01/09/18 21:15 Dose: 20 mg Ceftriaxone Sodium 1 gm/ (Sodium Chloride) 100 mls @ 100 mls/hr IVPB Q24H [facility] PRN Reason: Protocol Last Admin: 01/09/18 14:32 Dose: 100 mls/hr Azithromycin 500 mg/ Sodium (Chloride) 250 mls @ 167 mls/hr IVPB Q24H [facility] PRN Reason: Protocol Last Admin: 01/09/18 10:33 Dose: 167 mls/hr Sodium Chloride (Sodium Chloride 0.9%) 1,000 mls @ 200 mls/hr IV .Q5H [facility] Last Admin: 01/10/18 08:12 Dose: 200 mls/hr Ondansetron HCl (Zofran Inj) 8 mg IVP Q6 [facility] Last Admin: 01/10/18 06:01 Dose: 8 mg Saliva Substitute (First Magic Mouthwash) 5 ml MM Q6 [facility] Last Admin: 01/10/18 06:00 Dose: 5 ml Tramadol HCl (Ultram) 50 mg PO Q6 PRN PRN Reason: Pain, severe (8-10) Last Admin: 01/07/18 20:57 Dose: 50 mg - Labs Labs: 01/10/18 06:17 01/10/18 06:17 PT 11.9 SECONDS (9.7-12.2) 01/09/18 16:44 INR 1.1 01/09/18 16:44 APTT 29 SECONDS (21-34) 01/09/18 16:44 - Constitutional Appears: Non-toxic, Chronically Ill - Head Exam Head Exam: NORMOCEPHALIC - Eye Exam Eye Exam: PERRL - ENT Exam ENT Exam: Mucous Membranes Dry - Neck Exam Neck Exam: absent: Lymphadenopathy - Respiratory Exam Respiratory Exam: Decreased Breath Sounds - Cardiovascular Exam Cardiovascular Exam: REGULAR RHYTHM - GI/Abdominal Exam GI & Abdominal Exam: Distended - Rectal Exam Rectal Exam: Deferred - Exam Exam: NORMAL INSPECTION Assessment and Plan (1) Acute renal insufficiency Status: Acute (2) Gastrointestinal hemorrhage Status: Acute (3) Pneumonia Status: Acute
[2018-01-10] MEDS: Alum-Mag Hydrox-Simethicone Susp (30 mL) PO SCH ×3 (10:39→18:03)
[2018-01-10] MEDS: Azithromycin 500 MG in Sodium Chloride 0.9% 250 ML IVPB SCH (10:49)
--- NOTE | 2018-01-10 10:54 | CP.PCM.PN ---
Subjective - Date & Time of Evaluation Date of Evaluation: 01/10/18 Time of Evaluation: 10:45 - Subjective Subjective: Nephrology Consultation Note: Assessment: stable Acute Kidney Injury (N17.9) likely due to severe rhabdomyolysis: improving esophagitis and duodenitis on EGD severe non traumatic rhabdomyolysis ? illicit drug related but also r/o autoimmune causes, muscle enzymes deficiencies, genetic causes. proteinuria and microscopic hematuria Plan No acute need for renal replacement therapy at this time. BP controlled without meds No ACEI/ARB due to RADHA. Monitor Input/Output, daily weights and renal function with basic metabolic panel continue with NS @ 200 ml/hr monitor CPK additional work up as ordered. depending upon results, later may consider further eval with rheum, neuro with EMG, muscle biopsy etc. d/w pt that suspicion for illicit drug exposure remain high grzegorz in setting of his lack of memory for few days prior to to hospitalization. doubt if anesthesia on Tuesday can have such long lasting effect. Dose meds/antibiotics for reduced GFR. Avoid fleets enema/magnesium based laxatives. Avoid nephrotoxins/NSAIDs/ iodinated contrast (unless needed emergently) Glycemic control Further work up/management as per primary team Thanks for allowing me to participate in care of your patient. Will follow patient with you. Please call if any Qs. d/w team Dr Armaan Garcia Office: [phone] CC: blood in vomitus reason for consult: renal insuff HPI: Pt is a 37 M without any known medical hx presented with c/o blood in vomitus. he also had undergone botox inj for anal fissure last tuesday. found to have RADHA now and hence renal consulted. also with very high CPK levels Denies OTC/herbal meds or NSAIDs No recent iodinated contrast exposure. No obvious episodes of low BP. denies drug abuse such as cocaine. utox was neg as well. non smoker. admits to etoh socially over weekend only. no such episode of rhabdo in past. denies physical exertion or muscle weakness/ aches. ROS: feels better. has low appetite Cardiovascular: No chest pain. Pulmonary: No shortness of breath Gastrointestinal: denies abdominal pain No nausea. No vomiting. Genitourinary: No pain while urinating. Denies blood in urine. All other negative when asked about few days prior to hospitalization, he says I don't remember about it. hx mostly provided by his friend. asked about illicit drugs, he says no but doesn't remember Physical Examination: General Appearance: Comfortable, in no acute respiratory distress, co-operative . Vitals reviewed and noted as below Head; Atraumatic, normocephalic ENT: no ulcers no thrush. Tongue is coated with ulcers at lateral edges of tongue. Oropharynx: no rash or ulcers. EYES: Pupils are equal, round and reactive to light accommodation. Eye muscles and extraocular movement intact. Sclera is anicteric. Neck; supple no lymphadenopathy, no thyromegaly or bruit Lungs: Normal respiratory rate/effort. Breath sounds bilateral equal and clear Heart: Normal rate. s1s2 normal. No rub or gallop. Extremities: no edema. No varicose veins Neurological: Patient is alert, awake and oriented to person, place and time. No focal deficit. Strength bilateral appropriate and equal Skin: Warm and dry. Normal turgor. No rash. Palpitation: Normal elasticity for age Abdomen: Abdomen is soft. Bowel sounds +. There is no abdominal tenderness, no guarding/rigidity no organomegaly Psych: normal insight and normal affect/mood MSK: no joint tenderness or swelling. Digits and nails normal, no deformity : kidney or bladder not palpable Labs/imaging reviewed. Past medical history, past surgical history, family history, social history, allergy reviewed and noted as below Family hx: no hx of CKD. Rest non-contributory renal imaging WNL UA 2+ protein and 3+ blood pr/cr 1.3 gram/day CPK 716230 at presentation HIV/Hep B and C negative. C3/c4 normal Objective - Vital Signs/Intake and Output Vital Signs (last 24 hours): Temp Pulse Resp BP Pulse Ox 97.9 F 78 18 118/74 97 01/10/18 07:00 01/10/18 07:00 01/10/18 07:00 01/10/18 07:00 01/10/18 07:00 Intake and Output: 01/10/18 01/10/18 06:59 18:59 Intake Total 2100 Output Total 2200 Balance -100 - Medications Medications: Current Medications Al Hydrox/Mg Hydrox/Simethicone (Maalox Plus 30 Ml) 30 ml PO TID [facility] Last Admin: 01/09/18 18:03 Dose: 30 ml Famotidine (Pepcid) 20 mg PO Q12 [facility] Last Admin: 01/09/18 21:15 Dose: 20 mg Ceftriaxone Sodium 1 gm/ (Sodium Chloride) 100 mls @ 100 mls/hr IVPB Q24H [facility] PRN Reason: Protocol Last Admin: 01/09/18 14:32 Dose: 100 mls/hr Azithromycin 500 mg/ Sodium (Chloride) 250 mls @ 167 mls/hr IVPB Q24H [facility] PRN Reason: Protocol Last Admin: 01/09/18 10:33 Dose: 167 mls/hr Sodium Chloride (Sodium Chloride 0.9%) 1,000 mls @ 200 mls/hr IV .Q5H [facility] Last Admin: 01/10/18 08:12 Dose: 200 mls/hr Ondansetron HCl (Zofran Inj) 8 mg IVP Q6 [facility] Last Admin: 01/10/18 06:01 Dose: 8 mg Saliva Substitute (First Magic Mouthwash) 5 ml MM Q6 [facility] Last Admin: 01/10/18 06:00 Dose: 5 ml Tramadol HCl (Ultram) 50 mg PO Q6 PRN PRN Reason: Pain, severe (8-10) Last Admin: 01/07/18 20:57 Dose: 50 mg - Labs Labs: 01/10/18 06:17 01/10/18 06:17 PT 11.9 SECONDS (9.7-12.2) 01/09/18 16:44 INR 1.1 01/09/18 16:44 APTT 29 SECONDS (21-34) 01/09/18 16:44
[2018-01-10] MEDS: Nystatin 100,000 Units/ml Oral Susp 5 ml UD PO SCH ×2 (18:00→21:19)
[2018-01-11] MEDS: Sodium Chloride 0.9% 1,000 ML IV SCH ×6 (02:15→20:45)
[2018-01-11 06:19] LABS: BASO % 0.6 % (0.0-2.0); EOS # 0.1 K/uL (0.0-0.7); EOS % 1.7 % (0.0-4.0); HEMOGLOBIN 13.9 g/dL (12.0-18.0); LYMPH # 1.2 K/uL (1.0-4.3); LYMPH % 19.2 % (20.0-40.0); MEAN CELL VOLUME 86.7 fL (80.0-94.0); MEAN CORPUSCULAR HEMOGLOBIN 31.1 pg (27.0-31.0); MEAN CORPUSCULAR HGB CONC 35.8 g/dL (33.0-37.0); MEAN PLATELET VOLUME 9.7 fL (7.2-11.7); MONO # 0.3 K/uL (0.0-0.8); MONO % 5.7 % (0.0-10.0); NEUT # 4.4 K/uL (1.8-7.0); NEUT % 72.8 % (50.0-75.0); RBC 4.46 Mil/uL (4.40-5.90); RED CELL DISTRIBUTION WIDTH 12.2 % (11.5-14.5)
[2018-01-11 06:45] LABS: ALB/GLOB RATIO 1.1 (1.0-2.1); ALBUMIN 3.3 g/dL (3.5-5.0); ALT/SGPT 456 U/L (21-72); BLOOD UREA NITROGEN 12 mg/dL (9-20); CALCIUM 8.6 mg/dl (8.6-10.4); GFR AFRICAN-AMERICAN > 60; GFR NON-AFRICAN AMERICAN 56
[2018-01-11 06:55] LABS: FREE T4 1.62 ng/dL (0.78-2.19)
[2018-01-11 06:59] LABS: AST/SGOT 1300 U/L (17-59)
--- NOTE | 2018-01-11 09:33 | CP.PCM.PN ---
Subjective - Date & Time of Evaluation Date of Evaluation: 01/11/18 Time of Evaluation: 09:32 - Subjective Subjective: PGY-[address] Holden's service: Patient seen and examined at bedside. Nursing reports no acute events overnight. Pt reports slight improvement in muscle soreness today, but admits he felt a "little dizzy" walking to the bathroom this AM. Patient friends/ family at bedside and timeline regarding events leading up to admission more clear now. Patient now admits having 4-6 drinks of tequila/[place] iced tea then having "hard massage" that evening. Denies fever, chills, cough, SOB, palpitations, chest pain. Objective - Vital Signs/Intake and Output Vital Signs (last 24 hours): Temp Pulse Resp BP Pulse Ox 99.0 F 68 18 125/72 96 01/11/18 07:00 01/11/18 07:00 01/11/18 07:00 01/11/18 07:00 01/11/18 07:00 Intake and Output: 01/11/18 01/11/18 06:59 18:59 Intake Total 3820 Balance 3820 - Medications Medications: Current Medications Al Hydrox/Mg Hydrox/Simethicone (Maalox Plus 30 Ml) 30 ml PO TID [facility] Last Admin: 01/10/18 18:03 Dose: 30 ml Famotidine (Pepcid) 20 mg PO Q12 [facility] Last Admin: 01/10/18 21:19 Dose: 20 mg Ceftriaxone Sodium 1 gm/ (Sodium Chloride) 100 mls @ 100 mls/hr IVPB Q24H [facility] PRN Reason: Protocol Last Admin: 01/10/18 12:31 Dose: 100 mls/hr Azithromycin 500 mg/ Sodium (Chloride) 250 mls @ 167 mls/hr IVPB Q24H [facility] PRN Reason: Protocol Last Admin: 01/10/18 10:49 Dose: 167 mls/hr Sodium Chloride (Sodium Chloride 0.9%) 1,000 mls @ 200 mls/hr IV .Q5H [facility] Last Admin: 01/11/18 02:15 Dose: 200 mls/hr Nystatin (Nystatin Oral Susp) 5 ml PO QID [facility] Last Admin: 01/10/18 21:19 Dose: 5 ml Ondansetron HCl (Zofran Inj) 8 mg IVP Q6 [facility] Last Admin: 01/11/18 05:27 Dose: 8 mg Tramadol HCl (Ultram) 50 mg PO Q6 PRN PRN Reason: Pain, severe (8-10) Last Admin: 01/11/18 05:25 Dose: 50 mg - Labs Labs: 01/11/18 06:14 01/11/18 06:14 PT 11.9 SECONDS (9.7-12.2) 01/09/18 16:44 INR 1.1 01/09/18 16:44 APTT 29 SECONDS (21-34) 01/09/18 16:44 - Additional Findings Additional findings: - Constitutional Appears: Non-toxic, No Acute Distress - Head Exam Head Exam: ATRAUMATIC, NORMOCEPHALIC - Eye Exam Eye Exam: EOMI, Normal appearance - ENT Exam Additional comments: White patches located at bilateral tongue base - unable to scrape off the lesion , no active bleeding or discharge 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 absent: Wheezes, Respiratory Distress - no rales appreciated - Cardiovascular Exam Cardiovascular Exam: REGULAR RHYTHM, +S1, +S2 - GI/Abdominal Exam GI & Abdominal Exam: Soft. absent: Tenderness - Extremities Exam Extremities Exam: Normal Capillary Refill. absent: Joint Swelling, Tenderness - Neurological Exam Neurological Exam: Alert, Awake, Oriented x3 - Psychiatric Exam Psychiatric exam: Normal Affect, Normal Mood - Skin Skin Exam: Dry, Normal Color Assessment and Plan - Assessment and Plan (Free Text) Plan: Rhabdomyolysis -Total Cr Kinase improve slightly today ~140k -Creatitine improving, today 1.4 -IVF NS @200ml/hr -Nephrology consulted, Dr. Garcia help appreciated -renal u/s: No hydronephrosis. Echogenic kidneys c/w pt's hx of renal insufficiency f/u AI serology RADHA Resolving Etiology: 2/2 Rhabdo Cr 2.3 on admission, improved to 1.4 today -IVF NS @200ml/hr -Nephrology consulted, Dr. Garcia help appreciated -renal u/s: No hydronephrosis. Echogenic kidneys c/w pt's hx of renal insufficiency Pneumonia -Afebrile, WBC WNL today -initial CXR shows RLL atelectasis/infiltrate - f/u repeat CXR -Rocephin 1gm IV, Azithromycin 500mg IV -Blood cultures negative x 72 hours -Rapid flu, Legionella, HIV - all negative -Pending mycoplasma Igm, pneumoniae AB Transaminitis Increasing AST/ALT Dr. De La Paz, GI field consultant -Protonix changed to pepcid -Hepatitis panel negative ? hx of EtOH abuse Upper GI bleed Resolved -No further reported hematemesis -Hgb 13.9 today -Stool occult blood, leukocytes, O&P negative -Endoscopy shows small hiatal hernia, acute gastritis, and erythematous duodenopathy -Biopsy pending -Regular diet -GI consulted, Dr. De La Paz help appreciated Oral candidiasis -HIV 1&2 negative -Nystatin swish/swallow QID Prophylactic measures -Pepcid -SCD -Lalo Barros PGY-2 All management per Adina
[2018-01-11] MEDS: Azithromycin 500 MG in Sodium Chloride 0.9% 250 ML IVPB SCH (10:06)
[2018-01-11] MEDS: Alum-Mag Hydrox-Simethicone Susp (30 mL) PO SCH ×3 (10:06→18:15)
[2018-01-11] MEDS: Nystatin 100,000 Units/ml Oral Susp 5 ml UD PO SCH ×4 (10:06→21:36)
--- NOTE | 2018-01-11 11:51 | RAD ---
HISTORY: f/u infiltrate/effusion seen on 01/07 cxr COMPARISON: Chest radiograph dated 01/07/2018 TECHNIQUE: Chest PA and lateral FINDINGS: LUNGS: Improved right basilar aeration with mild persistent opacity. PLEURA: Stable elevation of the right hemidiaphragm. No significant pleural effusion identified. No pneumothorax apparent. CARDIOVASCULAR: Normal. OSSEOUS STRUCTURES: Unchanged. VISUALIZED UPPER ABDOMEN: Normal. OTHER FINDINGS: None. IMPRESSION: No active disease.
--- NOTE | 2018-01-11 14:48 | PN ---
DATE: LOCATION: 652 bed A. SUBJECTIVE: This is a 37-year-old male, seen and examined in rounds, with less muscle tenderness. No reported nausea or vomiting. No reported active bleeding. The patient is post upper endoscopy. Today's lab showed normal CBC with AST of 1300, ALT 456, albumin 3.3, total protein 6.2, and creatine kinase of . PHYSICAL EXAMINATION: GENERAL: A 37-year-old male. VITAL SIGNS: Afebrile with pulse of 66, respiratory rate of 20 to 22, blood pressure of 130/74. HEENT: Showed pale, dry oral mucous membranes. Nonicteric sclerae. LUNGS: A few scattered crepitation. Decreased air entry at bases. HEART: Positive S1 and S2. ABDOMEN: Soft with generalized tenderness. No mass or organomegaly. No rebound tenderness or guarding. EXTREMITIES: Without edema, clubbing, or cyanosis. NEUROLOGIC: No reported new neurological deficits, sensory or motor. Most recent chest x-ray reported to be normal, done today. IMPRESSION: 1. Peptic ulcer disease. 2. Alcoholism by history, given recent history. 3. Rhabdomyolysis. 4. Acute renal insufficiency. 5. Acute alcoholic hepatitis. 6. Pneumonia by recent history. 7. Oral candidiasis with gastritis by recent upper endoscopy. SUGGESTIONS: 1. Continue current management. 2. Full renal evaluation. 3. Cancer markers. 4. No need for further aggressive GI workup in the meantime. Neftaly Ochoa MD
--- NOTE | 2018-01-11 15:41 | CP.PCM.PN ---
Subjective - Date & Time of Evaluation Date of Evaluation: 01/11/18 Time of Evaluation: 15:40 - Subjective Subjective: Nephrology Consultation Note: Assessment: stable Acute Kidney Injury (N17.9) likely due to severe rhabdomyolysis: improving esophagitis and duodenitis on EGD severe non traumatic rhabdomyolysis ? illicit drug related but also r/o autoimmune causes, muscle enzymes deficiencies, genetic causes. proteinuria and microscopic hematuria Plan No acute need for renal replacement therapy at this time. BP controlled without meds No ACEI/ARB due to RADHA. Monitor Input/Output, daily weights and renal function with basic metabolic panel Increase NS rate to 250 ml/hr monitor CPK daily. additional work up for rhabdo as ordered. depending upon results, later may consider further eval with rheum, neuro with EMG, muscle biopsy etc. d/w pt that suspicion for illicit drug exposure remain high grzegorz in setting of his lack of memory for few days prior to to hospitalization. doubt if anesthesia on Tuesday can have such long lasting effect. Dose meds/antibiotics for improved GFR. Avoid fleets enema/magnesium based laxatives. Avoid nephrotoxins/NSAIDs/ iodinated contrast (unless needed emergently) Glycemic control Further work up/management as per primary team Thanks for allowing me to participate in care of your patient. Will follow patient with you. Please call if any Qs. d/w team Dr Armaan Garcia Office: [phone] reason for consult: renal insuff HPI: Pt is a 37 M without any known medical hx presented with c/o blood in vomitus. he also had undergone botox inj for anal fissure last tuesday. found to have RADHA now and hence renal consulted. also with very high CPK levels Denies OTC/herbal meds or NSAIDs No recent iodinated contrast exposure. No obvious episodes of low BP. denies drug abuse such as cocaine. utox was neg as well. non smoker. admits to etoh socially over weekend only. no such episode of rhabdo in past. denies physical exertion or muscle weakness/ aches. ROS: feels better. has low appetite Cardiovascular: No chest pain. Pulmonary: No shortness of breath Gastrointestinal: denies abdominal pain No nausea. No vomiting. had loose stool Genitourinary: No pain while urinating. Denies blood in urine. All other negative when asked about few days prior to hospitalization, he says I don't remember about it. hx mostly provided by his friend. asked about illicit drugs, he says no but doesn't remember Physical Examination: General Appearance: Comfortable, in no acute respiratory distress, co-operative . Vitals reviewed and noted as below Head; Atraumatic, normocephalic ENT: no ulcers no thrush. Tongue is coated with ulcers at lateral edges of tongue. Oropharynx: no rash or ulcers. EYES: Pupils are equal, round and reactive to light accommodation. Eye muscles and extraocular movement intact. Sclera is anicteric. Neck; supple no lymphadenopathy, no thyromegaly or bruit Lungs: Normal respiratory rate/effort. Breath sounds bilateral equal and clear Heart: Normal rate. s1s2 normal. No rub or gallop. Extremities: no edema. No varicose veins Neurological: Patient is alert, awake and oriented to person, place and time. No focal deficit. Strength bilateral appropriate and equal Skin: Warm and dry. Normal turgor. No rash. Palpitation: Normal elasticity for age Abdomen: Abdomen is soft. Bowel sounds +. There is no abdominal tenderness, no guarding/rigidity no organomegaly Psych: normal insight and normal affect/mood MSK: no joint tenderness or swelling. Digits and nails normal, no deformity : kidney or bladder not palpable Labs/imaging reviewed. Past medical history, past surgical history, family history, social history, allergy reviewed and noted as below Family hx: no hx of CKD. Rest non-contributory renal imaging WNL UA 2+ protein and 3+ blood pr/cr 1.3 gram/day CPK [id number] at presentation HIV/Hep B and C negative. C3/c4 normal Objective - Vital Signs/Intake and Output Vital Signs (last 24 hours): Temp Pulse Resp BP Pulse Ox 99.0 F 68 18 136/91 H 96 01/11/18 07:00 01/11/18 07:00 01/11/18 07:00 01/11/18 12:47 01/11/18 07:00 Intake and Output: 01/11/18 01/11/18 06:59 18:59 Intake Total 3820 Balance 3820 - Medications Medications: Current Medications Al Hydrox/Mg Hydrox/Simethicone (Maalox Plus 30 Ml) 30 ml PO TID [facility] Last Admin: 01/11/18 13:53 Dose: 30 ml Famotidine (Pepcid) 20 mg PO Q12 [facility] BEDS AT [facility] Last Admin: 01/11/18 10:05 Dose: 20 mg Sodium Chloride (Sodium Chloride 0.9%) 1,000 mls @ 200 mls/hr IV .Q5H [facility]S [facility]CLUDE 234 BEDS AT [facility] Last Admin: 01/11/18 13:54 Dose: 200 mls/hr Nystatin (Nystatin Oral Susp) 5 ml PO QID [facility]CLUDE 234 BEDS AT [facility] Last Admin: 01/11/18 13:53 Dose: 5 ml Ondansetron HCl (Zofran Inj) 8 mg IVP Q6 [facility] 234 BEDS AT [facility] Last Admin: 01/11/18 15:15 Dose: 8 mg Tramadol HCl (Ultram) 50 mg PO Q6 PRN PRN Reason: Pain, severe (8-10) Last Admin: 01/11/18 13:51 Dose: 50 mg - Labs Labs: 01/11/18 06:14 01/11/18 06:14 PT 11.9 SECONDS (9.7-12.2) 01/09/18 16:44 INR 1.1 01/09/18 16:44 APTT 29 SECONDS (21-34) 01/09/18 16:44
--- NOTE | 2018-01-11 15:49 | CP.PCM.PN ---
Subjective - Date & Time of Evaluation Date of Evaluation: 01/11/18 Time of Evaluation: 08:00 - Subjective Subjective: severe rhabdo persists but improving no fever Objective - Vital Signs/Intake and Output Vital Signs (last 24 hours): Temp Pulse Resp BP Pulse Ox 99.0 F 68 18 136/91 H 96 01/11/18 07:00 01/11/18 07:00 01/11/18 07:00 01/11/18 12:47 01/11/18 07:00 Intake and Output: 01/11/18 01/11/18 06:59 18:59 Intake Total 3820 Balance 3820 - Medications Medications: Current Medications Al Hydrox/Mg Hydrox/Simethicone (Maalox Plus 30 Ml) [address] [facility] Last Admin: 01/11/18 13:53 Dose: 30 ml Famotidine (Pepcid) [address] [facility] Last Admin: 01/11/18 10:05 Dose: 20 mg Sodium Chloride (Sodium Chloride 0.9%) 1,000 mls @ 200 mls/hr IV .Q5H [facility] Last Admin: 01/11/18 13:54 Dose: 200 mls/hr Nystatin (Nystatin Oral Susp) [address] [facility] Last Admin: 01/11/18 13:53 Dose: 5 ml Ondansetron HCl (Zofran Inj) [address] [facility] Last Admin: 01/11/18 15:15 Dose: 8 mg Tramadol HCl (Ultram) 50 mg PO Q6 PRN PRN Reason: Pain, severe (8-10) Last Admin: 01/11/18 13:51 Dose: 50 mg - Labs Labs: 01/11/18 06:14 01/11/18 06:14 PT 11.9 SECONDS (9.7-12.2) 01/09/18 16:44 INR 1.1 01/09/18 16:44 APTT 29 SECONDS (21-34) 01/09/18 16:44 - Constitutional Appears: Non-toxic, Chronically Ill - Head Exam Head Exam: NORMOCEPHALIC - Eye Exam Eye Exam: PERRL - ENT Exam ENT Exam: Mucous Membranes Dry - Neck Exam Neck Exam: absent: Lymphadenopathy - Respiratory Exam Respiratory Exam: Decreased Breath Sounds - Cardiovascular Exam Cardiovascular Exam: REGULAR RHYTHM - GI/Abdominal Exam GI & Abdominal Exam: Distended - Rectal Exam Rectal Exam: Deferred - Exam Exam: NORMAL INSPECTION - Extremities Exam Extremities Exam: absent: Pedal Edema - Back Exam Back Exam: absent: CVA tenderness (L), CVA tenderness (R) Assessment and Plan (1) Acute renal insufficiency Status: Acute (2) Gastrointestinal hemorrhage Status: Acute (3) Pneumonia Status: Acute - Assessment and Plan (Free Text) Assessment: Acute Kidney Injury (N17.9) likely due to severe rhabdomyolysis: improving esophagitis and duodenitis on EGD severe non traumatic rhabdomyolysis ? illicit drug related but also r/o autoimmune causes, muscle enzymes deficiencies, genetic causes. proteinuria and microscopic hematuria pneumonia- likely aspiration cont iv rx
[2018-01-12] MEDS: Sodium Chloride 0.9% 1,000 ML IV SCH ×4 (00:11→11:57)
[2018-01-12 01:04] LABS: ANCA SCREEN NEGATIVE (NEGATIVE)
[2018-01-12 06:40] LABS: BASO % 0.1 % (0.0-2.0); EOS # 0.2 K/uL (0.0-0.7); EOS % 2.3 % (0.0-4.0); LYMPH % 15.9 % (20.0-40.0); MEAN PLATELET VOLUME 9.6 fL (7.2-11.7); MONO # 0.5 K/uL (0.0-0.8); MONO % 7.2 % (0.0-10.0); NEUT # 4.8 K/uL (1.8-7.0); NEUT % 74.5 % (50.0-75.0); RBC 4.37 Mil/uL (4.40-5.90); RED CELL DISTRIBUTION WIDTH 12.5 % (11.5-14.5); WHITE BLOOD COUNT 6.4 K/uL (4.8-10.8)
[2018-01-12 07:04] LABS: HEMOGLOBIN 13.5 g/dL (12.0-18.0)
[2018-01-12] MEDS: Nystatin 100,000 Units/ml Oral Susp 5 ml UD PO SCH ×4 (10:13→21:24)
[2018-01-12] MEDS: Alum-Mag Hydrox-Simethicone Susp (30 mL) PO SCH ×3 (10:14→18:55)
[2018-01-12 10:32] LABS: ALB/GLOB RATIO 1.1 (1.0-2.1); ALBUMIN 3.2 g/dL (3.5-5.0); ALT/SGPT 467 U/L (21-72); AST/SGOT 1074 U/L (17-59); BLOOD UREA NITROGEN 11 mg/dL (9-20); CALCIUM 8.5 mg/dl (8.6-10.4); GFR AFRICAN-AMERICAN > 60; GFR NON-AFRICAN AMERICAN > 60
--- NOTE | 2018-01-12 12:00 | CP.PCM.PN ---
Subjective - Date & Time of Evaluation Date of Evaluation: 01/12/18 Time of Evaluation: 11:58 - Subjective Subjective: Nephrology Consultation Note: Assessment: stable Acute Kidney Injury (N17.9) likely due to severe rhabdomyolysis: improving esophagitis and duodenitis on EGD severe non traumatic rhabdomyolysis ? illicit drug related but also r/o autoimmune causes, muscle enzymes deficiencies, genetic causes. proteinuria and microscopic hematuria Plan No acute need for renal replacement therapy at this time. BP controlled without meds No ACEI/ARB due to RADHA. continue with NS rate @ 250 ml/hr monitor CPK daily. additional work up for rhabdo as ordered. depending upon results, later may consider further eval with rheum, neuro with EMG, muscle biopsy etc. d/w pt that suspicion for illicit drug exposure remain high grzegorz in setting of his lack of memory for few days prior to to hospitalization. doubt if anesthesia on Tuesday can have such long lasting effect. Dose meds/antibiotics for improved GFR. Avoid fleets enema/magnesium based laxatives. Avoid nephrotoxins/NSAIDs/ iodinated contrast (unless needed emergently) Glycemic control Further work up/management as per primary team Thanks for allowing me to participate in care of your patient. Will follow patient with you. Please call if any Qs. d/w team Dr Armaan Garcia Office: [phone] reason for consult: renal insuff HPI: Pt is a 37 M without any known medical hx presented with c/o blood in vomitus. he also had undergone botox inj for anal fissure last tuesday. found to have RADHA now and hence renal consulted. also with very high CPK levels Denies OTC/herbal meds or NSAIDs No recent iodinated contrast exposure. No obvious episodes of low BP. denies drug abuse such as cocaine. utox was neg as well. non smoker. admits to etoh socially over weekend only. no such episode of rhabdo in past. denies physical exertion or muscle weakness/ aches. ROS: feels better. has low appetite Cardiovascular: No chest pain. Pulmonary: No shortness of breath Gastrointestinal: denies abdominal pain c/o nausea. No vomiting. had loose stool Genitourinary: No pain while urinating. Denies blood in urine. All other negative when asked about few days prior to hospitalization, he says I don't remember about it. hx mostly provided by his friend. asked about illicit drugs, he says no but doesn't remember Physical Examination: General Appearance: Comfortable, in no acute respiratory distress, co-operative . Vitals reviewed and noted as below Head; Atraumatic, normocephalic ENT: no ulcers no thrush. Tongue is coated with ulcers at lateral edges of tongue. Oropharynx: no rash or ulcers. EYES: Pupils are equal, round and reactive to light accommodation. Eye muscles and extraocular movement intact. Sclera is anicteric. Neck; supple no lymphadenopathy, no thyromegaly or bruit Lungs: Normal respiratory rate/effort. Breath sounds bilateral equal and clear Heart: Normal rate. s1s2 normal. No rub or gallop. Extremities: no edema. No varicose veins Neurological: Patient is alert, awake and oriented to person, place and time. No focal deficit. Strength bilateral appropriate and equal Skin: Warm and dry. Normal turgor. No rash. Palpitation: Normal elasticity for age Abdomen: Abdomen is soft. Bowel sounds +. There is no abdominal tenderness, no guarding/rigidity no organomegaly Psych: normal insight and normal affect/mood MSK: no joint tenderness or swelling. Digits and nails normal, no deformity : kidney or bladder not palpable Labs/imaging reviewed. Past medical history, past surgical history, family history, social history, allergy reviewed and noted as below Family hx: no hx of CKD. Rest non-contributory renal imaging WNL UA 2+ protein and 3+ blood pr/cr 1.3 gram/day CPK 199415 at presentation HIV/Hep B and C negative. C3/c4 normal Objective - Vital Signs/Intake and Output Vital Signs (last 24 hours): Temp Pulse Resp BP Pulse Ox 98.1 F 74 20 151/84 H 98 01/11/18 23:15 01/11/18 23:15 01/11/18 23:15 01/12/18 00:15 01/11/18 23:15 Intake and Output: 01/12/18 01/12/18 06:59 18:59 Intake Total 2270 Balance 2270 - Medications Medications: Current Medications Al Hydrox/Mg Hydrox/Simethicone (Maalox Plus 30 Ml) 30 ml PO TID [facility] Last Admin: 01/12/18 10:14 Dose: 30 ml Famotidine (Pepcid) 20 mg PO Q12 [facility] Last Admin: 01/12/18 10:14 Dose: 20 mg Sodium Chloride (Sodium Chloride 0.9%) 1,000 mls @ 250 mls/hr IV .Q4H [facility] Last Admin: 01/12/18 11:57 Dose: 250 mls/hr Nystatin (Nystatin Oral Susp) 5 ml PO QID [facility] Last Admin: 01/12/18 10:13 Dose: 5 ml Ondansetron HCl (Zofran Inj) 8 mg IVP Q6 [facility] Last Admin: 01/12/18 11:56 Dose: 8 mg Tramadol HCl (Ultram) 50 mg PO Q6 PRN PRN Reason: Pain, severe (8-10) Last Admin: 01/12/18 11:54 Dose: 50 mg - Labs Labs: 01/12/18 06:34 01/12/18 06:34 PT 11.9 SECONDS (9.7-12.2) 01/09/18 16:44 INR 1.1 01/09/18 16:44 APTT 29 SECONDS (21-34) 01/09/18 16:44
--- NOTE | 2018-01-12 12:10 | PN ---
DATE: 01/12/2018 LOCATION: 652, bed A. SUBJECTIVE: This 37-year-old male was seen and examined in rounds without significant clinical changes, with a complaint of back pain and less abdominal pain, as well as complaint of muscle pain and spasm. The entire chart is reviewed including but not limited to the most recent lab and radiology study results, current and the previous medication list, current and the previous medical events. The patient is still tolerating oral intake without any nausea, vomiting, chest pain, palpitation, chills, fever, or significant shortness of breath. Today's lab showed normal CBC, rest of the lab is pending. However, the patient has persistent elevation of AST more than ALT with increased total creatine kinase, with low albumin, low total protein indicative of acute alcoholic hepatitis with alcoholic liver disease as well as myositis. Yesterday's chest x-ray official report is seen, indicative of no active disease. PHYSICAL EXAMINATION: GENERAL: A 37-year-old male, awake, alert, and oriented. VITAL SIGNS: Afebrile, with pulse of 70, respiratory rate of 20 to 22, with blood pressure of 146/80. HEENT: Showed pale, dry, oral mucous membranes with nonicteric sclerae. LUNGS: Scattered crepitations. Breathing sounds are present bilaterally. HEART: Positive S1 and S2. ABDOMEN: Soft, with mild generalized tenderness and slight distention. No mass or organomegaly. No rebound tenderness or guarding. RECTAL: The patient refused. EXTREMITIES: With muscular tenderness and evidence of mild muscular spasm, but no clubbing, cyanosis, or edema. NEUROLOGIC: No reported new significant neurological deficits, sensory or motor. No reported new focal deficits. IMPRESSION: 1. Alcoholism. 2. Acute alcoholic hepatitis. 3. Rhabdomyolysis. 4. Renal insufficiency, gradually improving. 5. Pneumonia by recent history, it could be a factor for exacerbation, elevated liver function test also, although this may be induced by alcohol intake. 6. Muscular spasm with myositis of unclear etiology. 7. Oral candidiasis with gastritis by recent upper endoscopy. SUGGESTIONS: 1. Continue current management. 2. Rheumatology consultation. 3. Follow up cancer markers. 4. Nephrology reevaluation. 5. Rehydration. 6. Further recommendation to follow. Neftaly Ochoa MD [facility] # [id number]
[2018-01-12] MEDS: Dextrose 5%/0.45% NS 1,000 ML IV SCH ×2 (13:01→18:58)
--- NOTE | 2018-01-12 14:55 | CP.PCM.PN ---
Subjective - Date & Time of Evaluation Date of Evaluation: 01/12/18 Time of Evaluation: 09:00 - Subjective Subjective: Progress Note for Dr. Holden Patient seen and examined at bedside with his friend present. No acute events overnight. Patient reports to feel nauseous in the morning with decreased appetite. His dizziness is improving and is actively ambulating around the maria. He denies feeling fever, chills, cough, shortness of breath, chest pain, palpitations, diarrhea, or urinary symptoms. Objective - Vital Signs/Intake and Output Vital Signs (last 24 hours): Temp Pulse Resp BP Pulse Ox 98.1 F 74 20 151/84 H 98 01/11/18 23:15 01/11/18 23:15 01/11/18 23:15 01/12/18 00:15 01/11/18 23:15 Intake and Output: 01/12/18 01/12/18 06:59 18:59 Intake Total 2270 Balance 2270 - Medications Medications: Current Medications Al Hydrox/Mg Hydrox/Simethicone (Maalox Plus 30 Ml) 30 ml PO TID [facility] Last Admin: 01/12/18 10:14 Dose: 30 ml Famotidine (Pepcid) 20 mg PO Q12 [facility] Last Admin: 01/12/18 10:14 Dose: 20 mg Dextrose/Sodium Chloride (Dextrose 5%/0.45% Ns 1000 Ml) 1,000 mls @ 150 mls/hr IV .Q6H40M [facility] Last Admin: 01/12/18 13:01 Dose: 150 mls/hr Nystatin (Nystatin Oral Susp) 5 ml PO QID [facility] Last Admin: 01/12/18 10:13 Dose: 5 ml Ondansetron HCl (Zofran Inj) 8 mg IVP Q6 [facility] Last Admin: 01/12/18 11:56 Dose: 8 mg Tramadol HCl (Ultram) 50 mg PO Q6 PRN PRN Reason: Pain, severe (8-10) Last Admin: 01/12/18 11:54 Dose: 50 mg - Labs Labs: 01/12/18 06:34 01/12/18 06:34 PT 11.9 SECONDS (9.7-12.2) 01/09/18 16:44 INR 1.1 01/09/18 16:44 APTT 29 SECONDS (21-34) 01/09/18 16:44 - Additional Findings Additional findings: - Constitutional Appears: Non-toxic, No Acute Distress - Head Exam Head Exam: ATRAUMATIC, NORMOCEPHALIC - Eye Exam Eye Exam: EOMI, Normal appearance - ENT Exam Additional comments: Leukoplakia improving, no tenderness - Neck Exam Neck Exam: absent: Lymphadenopathy - Respiratory Exam Respiratory Exam: NORMAL BREATHING PATTERN. absent: Wheezes, Respiratory Distress - no rales appreciated - Cardiovascular Exam Cardiovascular Exam: REGULAR RHYTHM, +S1, +S2 - GI/Abdominal Exam GI & Abdominal Exam: Soft. absent: Tenderness - Extremities Exam Extremities Exam: Normal Capillary Refill. absent: Joint Swelling, Tenderness - Neurological Exam Neurological Exam: Alert, Awake, Oriented x3 - Psychiatric Exam Psychiatric exam: Normal Affect, Normal Mood - Skin Skin Exam: Dry, Normal Color Assessment and Plan - Assessment and Plan (Free Text) Assessment: Rhabdomyolysis -Total Cr Kinase improved, [address] today -Creatitine improving, today 1.7 -IVF D5 1/2NS @150ml/hr, decreased rate due to elevated BP -Nephrology consulted, Dr. Garcia help appreciated -renal u/s: No hydronephrosis. Echogenic kidneys c/w pt's hx of renal insufficiency -Serologies negative so far -Rheumatology consulted RADHA Resolving Etiology: 2/2 Rhabdo Cr 2.3 on admission, improved to 1.7 today -IVF D5 1/2NS @150ml/hr due to elevated BP -Nephrology consulted, Dr. Garcia help appreciated -renal u/s: No hydronephrosis. Echogenic kidneys c/w pt's hx of renal insufficiency Pneumonia -Afebrile, WBC WNL today -initial CXR shows RLL atelectasis/infiltrate -Repeat CXR shows NAD -Blood cultures negative x 72 hours -Rapid flu, Legionella, HIV - all negative -Pending mycoplasma Igm, pneumoniae AB -Discontinued antibiotics per ID Transaminitis -Likely secondary to acute alcoholic hepatitis -Elevated AST/ALT 1074/467 today -Dr. De La Paz, GI customer sales consultant -Protonix changed to pepcid -Hepatitis panel negative Upper GI bleed Resolved -No further reported hematemesis -Hgb 13.9 today -Stool occult blood, leukocytes, O&P negative -Endoscopy shows small hiatal hernia, acute gastritis, and erythematous duodenopathy -Regular diet -GI consulted, Dr. De La Paz help appreciated -Biopsy shows mild chronic inflammation in gastric antral mucosa, negative for H. pylori Oral candidiasis -Improving -HIV 1&2 negative -Nystatin swish/swallow QID Prophylactic measures -Pepcid -SCD -Zofran Case discussed with attending physician All management per Adina
--- NOTE | 2018-01-12 17:31 | CP.PCM.PN ---
Subjective - Date & Time of Evaluation Date of Evaluation: 01/12/18 Time of Evaluation: 08:00 - Subjective Subjective: improving no fever Objective - Vital Signs/Intake and Output Vital Signs (last 24 hours): Temp Pulse Resp BP Pulse Ox 97.4 F L 79 20 140/94 H 96 01/12/18 16:27 01/12/18 16:27 01/12/18 16:27 01/12/18 16:27 01/12/18 16:27 Intake and Output: 01/12/18 01/12/18 06:59 18:59 Intake Total 2270 1200 Balance 2270 1200 - Medications Medications: Current Medications Al Hydrox/Mg Hydrox/Simethicone (Maalox Plus 30 Ml) 30 ml PO TID [facility] Last Admin: 01/12/18 15:57 Dose: 30 ml Famotidine (Pepcid) 20 mg PO Q12 [facility] Last Admin: 01/12/18 10:14 Dose: 20 mg Dextrose/Sodium Chloride (Dextrose 5%/0.45% Ns 1000 Ml) 1,000 mls @ 150 mls/hr IV .Q6H40M [facility] Last Admin: 01/12/18 13:01 Dose: 150 mls/hr Nystatin (Nystatin Oral Susp) 5 ml PO QID [facility] Last Admin: 01/12/18 15:57 Dose: 5 ml Ondansetron HCl (Zofran Inj) 8 mg IVP Q6 [facility] Last Admin: 01/12/18 17:26 Dose: 8 mg Tramadol HCl (Ultram) 50 mg PO Q6 PRN PRN Reason: Pain, severe (8-10) Last Admin: 01/12/18 17:26 Dose: 50 mg - Labs Labs: 01/12/18 06:34 01/12/18 06:34 PT 11.9 SECONDS (9.7-12.2) 01/09/18 16:44 INR 1.1 01/09/18 16:44 APTT 29 SECONDS (21-34) 01/09/18 16:44 - Constitutional Appears: Non-toxic, Chronically Ill - Head Exam Head Exam: NORMOCEPHALIC - Eye Exam Eye Exam: PERRL - ENT Exam ENT Exam: Mucous Membranes Dry - Neck Exam Neck Exam: absent: Lymphadenopathy - Respiratory Exam Respiratory Exam: Decreased Breath Sounds - Cardiovascular Exam Cardiovascular Exam: REGULAR RHYTHM - GI/Abdominal Exam GI & Abdominal Exam: Distended Assessment and Plan (1) Acute renal insufficiency Status: Acute (2) Gastrointestinal hemorrhage Status: Acute (3) Pneumonia Status: Acute
[2018-01-13] MEDS: Dextrose 5%/0.45% NS 1,000 ML IV SCH ×5 (01:40→20:15)
[2018-01-13 06:33] LABS: BASO % 0.3 % (0.0-2.0); EOS # 0.2 K/uL (0.0-0.7); EOS % 3.2 % (0.0-4.0); HEMOGLOBIN 14.2 g/dL (12.0-18.0); LYMPH # 1.2 K/uL (1.0-4.3); LYMPH % 18.3 % (20.0-40.0); MEAN CELL VOLUME 86.2 fL (80.0-94.0); MEAN CORPUSCULAR HEMOGLOBIN 30.5 pg (27.0-31.0); MEAN CORPUSCULAR HGB CONC 35.4 g/dL (33.0-37.0); MEAN PLATELET VOLUME 9.5 fL (7.2-11.7); MONO # 0.4 K/uL (0.0-0.8); MONO % 6.2 % (0.0-10.0); NEUT # 4.9 K/uL (1.8-7.0); NRBC % 0.1 % (0.0-2.0); RBC 4.67 Mil/uL (4.40-5.90); RED CELL DISTRIBUTION WIDTH 12.3 % (11.5-14.5); WHITE BLOOD COUNT 6.8 K/uL (4.8-10.8)
[2018-01-13 06:52] LABS: ALB/GLOB RATIO 1.1 (1.0-2.1); ALBUMIN 3.4 g/dL (3.5-5.0); ALT/SGPT 443 U/L (21-72); AST/SGOT 746 U/L (17-59); BLOOD UREA NITROGEN 9 mg/dL (9-20); CALCIUM 9.1 mg/dl (8.6-10.4); GFR AFRICAN-AMERICAN > 60; GFR NON-AFRICAN AMERICAN > 60
[2018-01-13] MEDS: Nystatin 100,000 Units/ml Oral Susp 5 ml UD PO SCH ×4 (09:27→21:41)
[2018-01-13] MEDS: Alum-Mag Hydrox-Simethicone Susp (30 mL) PO SCH ×3 (09:27→17:13)
[2018-01-13] MEDS ORDERED: Potassium Chloride 20 mEq ER Tab PO SCH (11:00)
--- NOTE | 2018-01-13 15:16 | CP.PCM.PN ---
<Blake Damon - Last Filed: 01/13/18 17:46> Subjective - Date & Time of Evaluation Date of Evaluation: 01/13/18 Time of Evaluation: 09:35 - Subjective Subjective: Progress Note for Dr. Lima Patient seen and examined at bedside with a friend present. Patient continues to have decreased of appetite, but overall patient is feeling better. Patient complains of penile irritation which started yesterday. Patient is actively ambulating around the floor. He denies having fever, chills, cough, shortness of breath, chest pain, palpitations, diarrhea, or urinary symptoms. Objective - Vital Signs/Intake and Output Vital Signs (last 24 hours): Temp Pulse Resp BP Pulse Ox 98 F 76 20 142/88 100 01/13/18 07:00 01/13/18 07:00 01/13/18 07:00 01/13/18 07:00 01/13/18 07:00 Intake and Output: 01/13/18 01/13/18 06:59 18:59 Intake Total 1200 1100 Balance 1200 1100 - Medications Medications: Current Medications Al Hydrox/Mg Hydrox/Simethicone (Maalox Plus 30 Ml) 30 ml PO TID [facility] Last Admin: 01/13/18 13:23 Dose: 30 ml Clotrimazole (Lotrimin 1%) 0 gm TOP BID [facility] Famotidine (Pepcid) 20 mg PO Q12 [facility] Last Admin: 01/13/18 09:27 Dose: 20 mg Dextrose/Sodium Chloride (Dextrose 5%/0.45% Ns 1000 Ml) 1,000 mls @ 250 mls/hr IV .Q4H [facility] Last Admin: 01/13/18 13:23 Dose: 250 mls/hr Nystatin (Nystatin Oral Susp) 5 ml PO QID [facility] Last Admin: 01/13/18 13:23 Dose: 5 ml Ondansetron HCl (Zofran Inj) 8 mg IVP Q6 [facility] Last Admin: 01/13/18 11:58 Dose: 8 mg Tramadol HCl (Ultram) 50 mg PO Q6 PRN PRN Reason: Pain, severe (8-10) Last Admin: 01/13/18 10:14 Dose: 50 mg - Labs Labs: 01/13/18 06:29 01/13/18 06:29 PT 11.9 SECONDS (9.7-12.2) 01/09/18 16:44 INR 1.1 01/09/18 16:44 APTT 29 SECONDS (21-34) 01/09/18 16:44 Assessment and Plan - Assessment and Plan (Free Text) Assessment: Rhabdomyolysis -Total Cr Kinase improved, 28297 today (goal <1000) -Creatitine improving, today 1.1 -IVF D5 1/2NS @250ml/hr -Nephrology consulted, Dr. Garcia help appreciated -renal u/s: No hydronephrosis. Echogenic kidneys c/w pt's hx of renal insufficiency -Serologies negative so far -Rheumatology consulted Balanitis -Likely secondary to recent antibiotic use -Clotrimazole topical TID RADHA Resolving Etiology: 2/2 Rhabdo Cr 2.3 on admission, improved to 1.7 today -IVF D5 1/2NS @250ml/hr due to elevated BP -Nephrology consulted, Dr. Garcia help appreciated -renal u/s: No hydronephrosis. Echogenic kidneys c/w pt's hx of renal insufficiency Pneumonia -Afebrile, WBC WNL today -initial CXR shows RLL atelectasis/infiltrate -Repeat CXR shows NAD -Blood cultures negative x 72 hours -Rapid flu, Legionella, HIV - all negative -Pending mycoplasma Igm, pneumoniae AB -Discontinued antibiotics per ID Transaminitis -Likely secondary to acute alcoholic hepatitis -Elevated AST/ALT 746/443 today -Dr. De La Paz, GI medical device sales consultant -pepcid -Hepatitis panel negative Upper GI bleed Resolved -No further reported hematemesis -Hgb 13.9 today -Stool occult blood, leukocytes, O&P negative -Endoscopy shows small hiatal hernia, acute gastritis, and erythematous duodenopathy -Regular diet -GI consulted, Dr. De La Paz help appreciated -Biopsy shows mild chronic inflammation in gastric antral mucosa, negative for H. pylori Oral candidiasis -Improving -HIV 1&2 negative -Nystatin swish/swallow QID Prophylactic measures -Pepcid -SCD -Zofran <Tatyana Lima V - Last Filed: 01/13/18 21:29> Objective - Vital Signs/Intake and Output Vital Signs (last 24 hours): Temp Pulse Resp BP Pulse Ox 98.0 F 78 20 131/81 97 01/13/18 15:00 01/13/18 15:00 01/13/18 15:00 01/13/18 15:00 01/13/18 15:00 Intake and Output: 01/13/18 01/14/18 18:59 06:59 Intake Total 1100 Balance 1100 - Medications Medications: Current Medications Al Hydrox/Mg Hydrox/Simethicone (Maalox Plus 30 Ml) 30 ml PO TID [facility] Last Admin: 01/13/18 17:13 Dose: 30 ml Clotrimazole (Lotrimin 1%) 0 gm TOP BID [facility] Last Admin: 01/13/18 17:12 Dose: 1 applic Famotidine (Pepcid) 20 mg PO Q12 [facility] Last Admin: 01/13/18 09:27 Dose: 20 mg Dextrose/Sodium Chloride (Dextrose 5%/0.45% Ns 1000 Ml) 1,000 mls @ 250 mls/hr IV .Q4H [facility] Last Admin: 01/13/18 17:13 Dose: 250 mls/hr Nystatin (Nystatin Oral Susp) 5 ml PO QID [facility] Last Admin: 01/13/18 17:13 Dose: 5 ml Ondansetron HCl (Zofran Inj) 8 mg IVP Q6 [facility] Last Admin: 01/13/18 17:13 Dose: 8 mg Tramadol HCl (Ultram) 50 mg PO Q6 PRN PRN Reason: Pain, severe (8-10) Last Admin: 01/13/18 17:13 Dose: 50 mg - Labs Labs: 01/13/18 06:29 01/13/18 06:29 PT 11.9 SECONDS (9.7-12.2) 01/09/18 16:44 INR 1.1 01/09/18 16:44 APTT 29 SECONDS (21-34) 01/09/18 16:44 Attending/Attestation - Attestation I have personally seen and examined this patient.: Yes I have fully participated in the care of the patient.: Yes I have reviewed all pertinent clinical information, including history, physical exam and plan: Yes Notes (Text): Hospitalist Service Covering Dr. Holden until (01/16/18) Patient seen and examined with the resident. Patient seen ambulating with his sister-friend who he permits to speak his medical information in front of. patient reports he has been on liquid diet, and has had 2 small bowel movements this morning. Patient also noted white yeast around his penis. Patient reports mild muscle aches and pains but reports he is feeling better overall. I have explained to him his labs continue to improve his liver and kidney numbers. We will need to continue IV fluids. Assessment/Plan 1) Rhabdomyolysis * Nephrology consulted, Dr. Garcia help appreciated * Total Cr Kinase improved, 59597 today (goal <1000) * Creatinine improving, today 1.1 * IVF D5 1/2NS @250ml/hr * renal u/s: No hydronephrosis. Echogenic kidneys c/w pt's hx of renal insufficiency * Per renal: if cpk continues to trend downwards at current rate, then tomorrow should be stable from renal prespective for discharge; He was given script for 5 -7 days and to f/u in the office. * Pending rheumatologic workup-->available results are negative thus far 2) Balanitis * Likely secondary to recent antibiotic use * Start Clotrimazole topical TID 3) Acute Renal Insufficiency secondary to Rhabdomyolysis * Nephrology consulted, Dr. Garcia help appreciated * Cr 2.3 on admission, improved to 1.7 today * IVF D5 1/2NS @250ml/hr * Renal u/s: No hydronephrosis. Echogenic kidneys c/w pt's hx of renal insufficiency 4) Pneumonia-->resolved * Infectious Disease consulted, Dr. Lopez on the case-->help appreciated * Afebrile, WBC WNL today * initial CXR shows RLL atelectasis/infiltrate * Repeat CXR shows no acute active disease * Blood cultures negative x 72 hours * Rapid flu, Legionella, HIV - all negative * Pending mycoplasma Igm, pneumoniae AB * Discontinued antibiotics per ID 5) Alcoholic Hepatitis Transaminitis * GI consulted, Dr. De La Paz on the case-->help appreciated * Hepatitis panel negative * continuing to improve * monitor 6) Upper GI bleed Erosive Gastritis * GI consulted, Dr. De La Paz help appreciated * No further reported hematemesis * Hgb 13.9 today * Stool occult blood, leukocytes, O&P negative * Endoscopy shows small hiatal hernia, acute gastritis, and erythematous duodenopathy * Regular diet * Biopsy shows mild chronic inflammation in gastric antral mucosa, negative for H. pylori * no aggressive GI workup per GI note 7) Oral candidiasis * Improving * HIV 1&2 negative * Nystatin swish/swallow QID 8) Prophylactic measures * Pepcid * SCD * Zofran 9) Cannabis Use * Patient does admit to cannabis use during rounds; unclear if related to his rhabdomyolysis or not
--- NOTE | 2018-01-13 15:45 | CP.PCM.PN ---
Subjective - Date & Time of Evaluation Date of Evaluation: 01/13/18 Time of Evaluation: 15:44 - Subjective Subjective: Nephrology Consultation Note: Assessment: stable Acute Kidney Injury (N17.9) likely due to severe rhabdomyolysis: improving esophagitis and duodenitis on EGD severe non traumatic rhabdomyolysis ? illicit drug related but also r/o autoimmune causes, muscle enzymes deficiencies, genetic causes. proteinuria and microscopic hematuria Plan No acute need for renal replacement therapy at this time. BP controlled without meds No ACEI/ARB due to RADHA. continue with IVF monitor CPK daily. additional work up for rhabdo as ordered. depending upon results, later may consider further eval with rheum, neuro with EMG, muscle biopsy etc. d/w pt that suspicion for illicit drug exposure remain high grzegorz in setting of his lack of memory for few days prior to to hospitalization. doubt if anesthesia on Tuesday can have such long lasting effect. Dose meds/antibiotics for improved GFR. Avoid fleets enema/magnesium based laxatives. Avoid nephrotoxins/NSAIDs/ iodinated contrast (unless needed emergently) Glycemic control Further work up/management as per primary team if CPK continues to trend downwards at current rate, then tomorrow should be stable for d/c from renal perspective. pt was given Rx to check labs in 5-7 days and f/up in office Thanks for allowing me to participate in care of your patient. Will follow patient with you. Please call if any Qs. d/w team Dr Armaan Garcia Office: [phone] reason for consult: renal insuff HPI: Pt is a 37 M without any known medical hx presented with c/o blood in vomitus. he also had undergone botox inj for anal fissure last tuesday. found to have RADHA now and hence renal consulted. also with very high CPK levels Denies OTC/herbal meds or NSAIDs No recent iodinated contrast exposure. No obvious episodes of low BP. denies drug abuse such as cocaine. utox was neg as well. non smoker. admits to etoh socially over weekend only. no such episode of rhabdo in past. denies physical exertion or muscle weakness/ aches. ROS: feels better. has low appetite Cardiovascular: No chest pain. Pulmonary: No shortness of breath Gastrointestinal: denies abdominal pain improved nausea. No vomiting. had loose stool Genitourinary: No pain while urinating. Denies blood in urine. All other negative when asked about few days prior to hospitalization, he says I don't remember about it. hx mostly provided by his friend. asked about illicit drugs, he says no but doesn't remember Physical Examination: General Appearance: Comfortable, in no acute respiratory distress, co-operative . Vitals reviewed and noted as below Head; Atraumatic, normocephalic ENT: no ulcers no thrush. Tongue is coated with ulcers at lateral edges of tongue. Oropharynx: no rash or ulcers. EYES: Pupils are equal, round and reactive to light accommodation. Eye muscles and extraocular movement intact. Sclera is anicteric. Neck; supple no lymphadenopathy, no thyromegaly or bruit Lungs: Normal respiratory rate/effort. Breath sounds bilateral equal and clear Heart: Normal rate. s1s2 normal. No rub or gallop. Extremities: no edema. No varicose veins Neurological: Patient is alert, awake and oriented to person, place and time. No focal deficit. Strength bilateral appropriate and equal Skin: Warm and dry. Normal turgor. No rash. Palpitation: Normal elasticity for age Abdomen: Abdomen is soft. Bowel sounds +. There is no abdominal tenderness, no guarding/rigidity no organomegaly Psych: normal insight and normal affect/mood MSK: no joint tenderness or swelling. Digits and nails normal, no deformity : kidney or bladder not palpable Labs/imaging reviewed. Past medical history, past surgical history, family history, social history, allergy reviewed and noted as below Family hx: no hx of CKD. Rest non-contributory renal imaging WNL UA 2+ protein and 3+ blood pr/cr 1.3 gram/day CPK [id number] at presentation HIV/Hep B and C negative. C3/c4 normal Objective - Vital Signs/Intake and Output Vital Signs (last 24 hours): Temp Pulse Resp BP Pulse Ox 98 F 76 20 142/88 100 01/13/18 07:00 01/13/18 07:00 01/13/18 07:00 01/13/18 07:00 01/13/18 07:00 Intake and Output: 01/13/18 01/13/18 06:59 18:59 Intake Total 1200 1100 Balance 1200 1100 - Medications Medications: Current Medications Al Hydrox/Mg Hydrox/Simethicone (Maalox Plus 30 Ml) 30 ml PO TID [facility] Last Admin: 01/13/18 13:23 Dose: 30 ml Clotrimazole (Lotrimin 1%) 0 gm TOP BID [facility] Famotidine (Pepcid) 20 mg PO Q12 [facility] Last Admin: 01/13/18 09:27 Dose: 20 mg Dextrose/Sodium Chloride (Dextrose 5%/0.45% Ns 1000 Ml) 1,000 mls @ 250 mls/hr IV .Q4H [facility] Last Admin: 01/13/18 13:23 Dose: 250 mls/hr Nystatin (Nystatin Oral Susp) 5 ml PO QID [facility] Last Admin: 01/13/18 13:23 Dose: 5 ml Ondansetron HCl (Zofran Inj) 8 mg IVP Q6 [facility] Last Admin: 01/13/18 11:58 Dose: 8 mg Tramadol HCl (Ultram) 50 mg PO Q6 PRN PRN Reason: Pain, severe (8-10) Last Admin: 01/13/18 10:14 Dose: 50 mg - Labs Labs: 01/13/18 06:29 01/13/18 06:29 PT 11.9 SECONDS (9.7-12.2) 01/09/18 16:44 INR 1.1 01/09/18 16:44 APTT 29 SECONDS (21-34) 01/09/18 16:44
--- NOTE | 2018-01-13 16:24 | PN ---
DATE: 01/13/2018 LOCATION: 652, bed A. SUBJECTIVE: This is a 37-year-old male seen and examined in rounds with intermittent period of nausea and vomiting, with mild dyspepsia, but no chest pain, palpitation, or significant complaint of shortness of breath or active bleeding. The entire chart is reviewed including, but not limited to, the most recent lab and radiology study results, current and previous medication list, current and previous medical events. Case discussed with the staff at length. The patient reported very poor appetite with persistent nausea again this morning, but no chills, fever, palpitation or significant shortness of breath. Today's lab showed normal CBC, increased CO2 content of 31. AST 746, ALT 443, and total creatine kinase 26,768, increased with albumin 3.4. The above finding consistent with the patient's known history of acute alcoholic hepatitis which is gradually improving. PHYSICAL EXAMINATION: GENERAL: A 37-year-old male. VITAL SIGNS: Afebrile with pulse of 72, respiratory rate of 20 to 22, blood pressure of 144/84. HEENT: Showed pale, dry oral mucous membranes with nonicteric sclerae. LUNGS: Slight bilateral crepitations. Breathing sounds are present bilaterally. HEART: Positive S1 and S2. ABDOMEN: Soft. Bowel sounds are present. No mass or organomegaly. No rebound tenderness or guarding. EXTREMITIES: Without significant clubbing, cyanosis, or edema. NEUROLOGIC: No reported new neurological deficits, sensory or motor. No reported new focal deficits. IMPRESSION: 1. Acute alcoholic hepatitis, most likely. 2. Alcoholism. 3. Rhabdomyolysis. 4. Renal insufficiency, improved. 5. Reported pneumonia, still on antibiotics. 6. Severe muscular spasm with myositis. 7. Reported oral candidiasis with peptic ulcer disease. SUGGESTIONS: 1. Agree with your plan. 2. Rehydration. 3. Rheumatology and oncology evaluation. 4. Guaiac all the stool daily x3. 5. Follow up on cancer markers. 6. Further recommendation to follow. Neftaly Ochoa MD
[2018-01-13] MEDS: Clotrimazole 1% Cream(30 gm) TOP SCH (17:12)
--- NOTE | 2018-01-13 17:40 | CP.PCM.PN ---
Subjective - Date & Time of Evaluation Date of Evaluation: 01/13/18 Time of Evaluation: 06:00 - Subjective Subjective: NO FEVER RENAL FUNCTION IMPROVING Objective - Vital Signs/Intake and Output Vital Signs (last 24 hours): Temp Pulse Resp BP Pulse Ox 98.0 F 78 20 131/81 97 01/13/18 15:00 01/13/18 15:00 01/13/18 15:00 01/13/18 15:00 01/13/18 15:00 Intake and Output: 01/13/18 01/13/18 06:59 18:59 Intake Total 1200 1100 Balance 1200 1100 - Medications Medications: Current Medications Al Hydrox/Mg Hydrox/Simethicone (Maalox Plus 30 Ml) 30 ml PO TID [facility] Last Admin: 01/13/18 17:13 Dose: 30 ml Clotrimazole (Lotrimin 1%) 0 gm TOP BID [facility] Last Admin: 01/13/18 17:12 Dose: 1 applic Famotidine (Pepcid) 20 mg PO Q12 [facility] Last Admin: 01/13/18 09:27 Dose: 20 mg Dextrose/Sodium Chloride (Dextrose 5%/0.45% Ns 1000 Ml) 1,000 mls @ 250 mls/hr IV .Q4H [facility] Last Admin: 01/13/18 17:13 Dose: 250 mls/hr Nystatin (Nystatin Oral Susp) 5 ml PO QID [facility] Last Admin: 01/13/18 17:13 Dose: 5 ml Ondansetron HCl (Zofran Inj) 8 mg IVP Q6 [facility] Last Admin: 01/13/18 17:13 Dose: 8 mg Tramadol HCl (Ultram) 50 mg PO Q6 PRN PRN Reason: Pain, severe (8-10) Last Admin: 01/13/18 17:13 Dose: 50 mg - Labs Labs: 01/13/18 06:29 01/13/18 06:29 PT 11.9 SECONDS (9.7-12.2) 01/09/18 16:44 INR 1.1 01/09/18 16:44 APTT 29 SECONDS (21-34) 01/09/18 16:44 - Constitutional Appears: Non-toxic, Chronically Ill - Head Exam Head Exam: NORMOCEPHALIC - Eye Exam Eye Exam: PERRL - ENT Exam ENT Exam: Mucous Membranes Dry - Neck Exam Neck Exam: absent: Lymphadenopathy - Respiratory Exam Respiratory Exam: Decreased Breath Sounds - Cardiovascular Exam Cardiovascular Exam: REGULAR RHYTHM - GI/Abdominal Exam GI & Abdominal Exam: Distended, Soft Assessment and Plan (1) Acute renal insufficiency Status: Acute (2) Gastrointestinal hemorrhage Status: Acute (3) Pneumonia Status: Acute
[2018-01-14] MEDS: Dextrose 5%/0.45% NS 1,000 ML IV SCH ×6 (00:12→20:49)
[2018-01-14 07:15] LABS: ALB/GLOB RATIO 1.1 (1.0-2.1); ALBUMIN 3.2 g/dL (3.5-5.0); ALT/SGPT 351 U/L (21-72); AST/SGOT 404 U/L (17-59); BLOOD UREA NITROGEN 7 mg/dL (9-20); CALCIUM 9.2 mg/dl (8.6-10.4); GFR AFRICAN-AMERICAN > 60; GFR NON-AFRICAN AMERICAN > 60
[2018-01-14 07:40] LABS: BASO % 0.1 % (0.0-2.0); EOS # 0.2 K/uL (0.0-0.7); EOS % 3.1 % (0.0-4.0); HEMOGLOBIN 13.9 g/dL (12.0-18.0); LYMPH # 1.3 K/uL (1.0-4.3); LYMPH % 20.1 % (20.0-40.0); MEAN CELL VOLUME 86.3 fL (80.0-94.0); MEAN CORPUSCULAR HEMOGLOBIN 30.9 pg (27.0-31.0); MEAN CORPUSCULAR HGB CONC 35.8 g/dL (33.0-37.0); MEAN PLATELET VOLUME 9.4 fL (7.2-11.7); MONO # 0.4 K/uL (0.0-0.8); MONO % 6.4 % (0.0-10.0); NEUT # 4.4 K/uL (1.8-7.0); NEUT % 70.3 % (50.0-75.0); RBC 4.5 Mil/uL (4.40-5.90); RED CELL DISTRIBUTION WIDTH 12.6 % (11.5-14.5); WHITE BLOOD COUNT 6.3 K/uL (4.8-10.8)
[2018-01-14] MEDS: Nystatin 100,000 Units/ml Oral Susp 5 ml UD PO SCH ×4 (10:28→22:50)
[2018-01-14] MEDS: Alum-Mag Hydrox-Simethicone Susp (30 mL) PO SCH ×3 (10:28→18:09)
[2018-01-14] MEDS: Clotrimazole 1% Cream(30 gm) TOP SCH ×2 (10:28→18:10)
--- NOTE | 2018-01-14 11:42 | PN ---
DATE: LOCATION: 652, bed A SUBJECTIVE: This is a 37-year-old male seen and examined in rounds, appeared to be awake, alert, and oriented with loss of appetite, tolerating only liquid diet so far as per his statement this morning, complaining of upper and lower extremities muscle pain, with poor oral intake. The entire chart is reviewed including but not limited to the most recent lab and radiology study results, current and the previous medication list, current and the previous medical events. It has to be mentioned that the patient admitted persistent nausea by oral intake with mild dyspepsia, but no chest pain, palpitation, shortness of breath, chills or fever. Most recent lab results showed AST of 746, ALT 443, [place] [address], albumin 3.4. PHYSICAL EXAMINATION: GENERAL/VITAL SIGNS: A 37-year-old male, afebrile, awake, alert, and oriented, with respiratory rate of 20 to 22, pulse of 74, blood pressure of 140/82. HEENT: Showed pale, dry, oral mucous membranes. Nonicteric sclerae. LUNGS: Clear. Breathing sounds are present bilaterally. HEART: Positive S1 and S2. ABDOMEN: Soft, bowel sounds are present. No mass or organomegaly. No rebound tenderness or guarding. EXTREMITIES: With evidence of mild muscle tenderness and spasm, but no clubbing or cyanosis. NEUROLOGIC: No reported new neurological deficits, sensory or motor. IMPRESSION: 1. Alcoholism with alcoholic liver disease. 2. Acute alcoholic hepatitis, improving. 3. Rhabdomyolysis. 4. Reported renal insufficiency, improved. 5. Muscle spasm with probable myositis, seen by Rheumatology customer care consultant. 6. Recent history of pneumonia, have been on antibiotics. SUGGESTIONS: 1. Agree with your plan. 2. No need for Oncology evaluation at this point. 3. Reglan p.o. 5 mg a.c. 4. Follow up serum lipase, amylase level. 5. Repeat liver enzymes and advance diet as tolerated. 6. Further recommendations to follow. Neftayl Ochoa MD
--- NOTE | 2018-01-14 13:24 | CP.PCM.PN ---
<TonidonMaria C - Last Filed: 01/14/18 13:26> Subjective - Date & Time of Evaluation Date of Evaluation: 01/14/18 Time of Evaluation: 10:00 - Subjective Subjective: Medicine Note for Hospitalist- Dr. Lima Patient was and seen and examined at bedside. Patient reports a decreased appetite and sensation of fullness. He has not been able to tolerate large amounts of liquids PO. Denied fever, chills, headache, chest pain, abdominal pain, n/v/d/c/, or urinary symptoms. Objective - Vital Signs/Intake and Output Vital Signs (last 24 hours): Temp Pulse Resp BP Pulse Ox 98 F 71 18 126/78 98 01/14/18 07:00 01/14/18 07:00 01/14/18 07:00 01/14/18 07:00 01/14/18 07:00 Intake and Output: 01/14/18 01/14/18 06:59 18:59 Intake Total 1999 Balance 1999 - Medications Medications: Current Medications Al Hydrox/Mg Hydrox/Simethicone (Maalox Plus 30 Ml) 30 ml PO TID [facility] Last Admin: 01/14/18 13:04 Dose: 30 ml Clotrimazole (Lotrimin 1%) 0 gm TOP BID [facility] Last Admin: 01/14/18 10:28 Dose: 1 applic Famotidine (Pepcid) 20 mg PO Q12 [facility] Last Admin: 01/14/18 10:28 Dose: 20 mg Dextrose/Sodium Chloride (Dextrose 5%/0.45% Ns 1000 Ml) 1,000 mls @ 250 mls/hr IV .Q4H [facility] Last Admin: 01/14/18 12:01 Dose: 250 mls/hr Nystatin (Nystatin Oral Susp) 5 ml PO QID [facility] Last Admin: 01/14/18 13:04 Dose: 5 ml Ondansetron HCl (Zofran Inj) 8 mg IVP Q6 [facility] Last Admin: 01/14/18 12:01 Dose: 8 mg Tramadol HCl (Ultram) 50 mg PO Q6 PRN PRN Reason: Pain, severe (8-10) Last Admin: 01/14/18 13:03 Dose: 50 mg - Labs Labs: 01/14/18 06:45 01/14/18 06:45 PT 11.9 SECONDS (9.7-12.2) 01/09/18 16:44 INR 1.1 01/09/18 16:44 APTT 29 SECONDS (21-34) 01/09/18 16:44 - Additional Findings Additional findings: - Constitutional Appears: Non-toxic, No Acute Distress - Head Exam Head Exam: ATRAUMATIC, NORMOCEPHALIC - Eye Exam Eye Exam: EOMI, Normal appearance - ENT Exam Additional comments: Leukoplakia improving, no tenderness - Neck Exam Neck Exam: absent: Lymphadenopathy - Respiratory Exam Respiratory Exam: NORMAL BREATHING PATTERN. absent: Wheezes, Respiratory Distress - no rales appreciated - Cardiovascular Exam Cardiovascular Exam: REGULAR RHYTHM, +S1, +S2 - GI/Abdominal Exam GI & Abdominal Exam: Soft. absent: Tenderness - Extremities Exam Extremities Exam: Normal Capillary Refill. absent: Joint Swelling, Tenderness - Neurological Exam Neurological Exam: Alert, Awake, Oriented x3 - Psychiatric Exam Psychiatric exam: Normal Affect, Normal Mood - Skin Skin Exam: Dry, Normal Color Assessment and Plan - Assessment and Plan (Free Text) Plan: 1) Rhabdomyolysis * Nephrology consulted, Dr. Garcia help appreciated * Total Cr Kinase improved, 69007 today (goal <1000) * Creatinine improving, today 1.1 * IVF D5 1/2NS @250ml/hr * renal u/s: No hydronephrosis. Echogenic kidneys c/w pt's hx of renal insufficiency * Per renal: if cpk continues to trend downwards at current rate, then tomorrow should be stable from renal prespective for discharge; He was given script for 5 -7 days and to f/u in the office. * Pending rheumatologic workup--> available results are negative thus far 2) Balanitis * Likely secondary to recent antibiotic use * Start Clotrimazole topical TID 3) Acute Renal Insufficiency secondary to Rhabdomyolysis * Nephrology consulted, Dr. Garcia help appreciated * Cr 2.3 on admission, improved to 1.7 today * IVF D5 1/2NS @250ml/hr * Renal u/s: No hydronephrosis. Echogenic kidneys c/w pt's hx of renal insufficiency 4) Pneumonia-->resolved * Infectious Disease consulted, Dr. Lopez on the case-->help appreciated * Afebrile, WBC WNL today * initial CXR shows RLL atelectasis/infiltrate * Repeat CXR shows no acute active disease * Blood cultures negative x 72 hours * Rapid flu, Legionella, HIV - all negative * Pending mycoplasma Igm, pneumoniae AB * Discontinued antibiotics per ID 5) Alcoholic Hepatitis Transaminitis * GI consulted, Dr. De La Paz on the case--> help appreciated * Hepatitis panel negative * continuing to improve * monitor 6) Upper GI bleed Erosive Gastritis * GI consulted, Dr. De La Paz help appreciated * No further reported hematemesis * Hgb stable * Stool occult blood, leukocytes, O&P negative * Endoscopy shows small hiatal hernia, acute gastritis, and erythematous duodenopathy * Regular diet * Biopsy shows mild chronic inflammation in gastric antral mucosa, negative for H. pylori * no aggressive GI workup per GI note 7) Oral candidiasis * Improving * HIV 1&2 negative * Nystatin swish/swallow QID 8) Prophylactic measures * Pepcid * SCD * Zofran 9) Cannabis Use * Patient does admit to cannabis use during rounds; unclear if related to his rhabdomyolysis or not Disposition: Anticipate discharge tomorrow to complete IVF since patient is unable to tolerate large volumes of water PO. DW Maria C Syed DO, PGY-1 <Tatyana Lima V - Last Filed: 01/14/18 16:27> Objective - Vital Signs/Intake and Output Vital Signs (last 24 hours): Temp Pulse Resp BP Pulse Ox 98 F 71 18 126/78 98 01/14/18 07:00 01/14/18 07:00 01/14/18 07:00 01/14/18 07:00 01/14/18 07:00 Intake and Output: 01/14/18 01/14/18 06:59 18:59 Intake Total 1999 1150 Balance 1999 1150 - Medications Medications: Current Medications Al Hydrox/Mg Hydrox/Simethicone (Maalox Plus 30 Ml) 30 ml PO TID [facility] Last Admin: 01/14/18 13:04 Dose: 30 ml Clotrimazole (Lotrimin 1%) 0 gm TOP BID [facility] Last Admin: 01/14/18 10:28 Dose: 1 applic Famotidine (Pepcid) 20 mg PO Q12 [facility] Last Admin: 01/14/18 10:28 Dose: 20 mg Dextrose/Sodium Chloride (Dextrose 5%/0.45% Ns 1000 Ml) 1,000 mls @ 250 mls/hr IV .Q4H [facility] Last Admin: 01/14/18 12:01 Dose: 250 mls/hr Nystatin (Nystatin Oral Susp) 5 ml PO QID [facility] Last Admin: 01/14/18 13:04 Dose: 5 ml Ondansetron HCl (Zofran Inj) 8 mg IVP Q6 [facility] Last Admin: 01/14/18 12:01 Dose: 8 mg Tramadol HCl (Ultram) 50 mg PO Q6 PRN PRN Reason: Pain, severe (8-10) Last Admin: 01/14/18 13:03 Dose: 50 mg - Labs Labs: 01/14/18 06:45 01/14/18 06:45 PT 11.9 SECONDS (9.7-12.2) 01/09/18 16:44 INR 1.1 01/09/18 16:44 APTT 29 SECONDS (21-34) 01/09/18 16:44 Attending/Attestation - Attestation I have personally seen and examined this patient.: Yes I have fully participated in the care of the patient.: Yes I have reviewed all pertinent clinical information, including history, physical exam and plan: Yes Notes (Text): Hospitalist Service Covering Dr. Holden until (01/16/18) Patient seen and examined with the resident. Patient seen ambulating with his "sister-friend" who he permits to speak his medical information in front of. Patient reports he has been on liquid diet. patient reports he is feeling better ; however has not regained his appetite back. Patient reports he cannot drink as much water as he used to before coming to the hospital: about 2 liters a day. Patient was educated at bedside and advised if he cannot drink enough water then his renal and liver numbers may not improve. We will continue IV fluids and see if we can discharge tomorrow. We have also examined his penis and glans penis witnessed by his nurse, Brendon in the room. patient is noting to have white substance over the glans and creases, no apparent vesicular lesion, mild skin breaks. Patient reports he is using the antifungal topical as directed. Assessment/Plan 1) Rhabdomyolysis * Nephrology consulted, Dr. Garcia help appreciated * Total Cr Kinase improving * Creatinine improving * IVF D5 1/2NS @250ml/hr * renal u/s: No hydronephrosis. Echogenic kidneys c/w pt's hx of renal insufficiency * Per renal: if cpk continues to trend downwards at current rate, then tomorrow should be stable from renal prespective for discharge; He was given script for 5 -7 days and to f/u in the office. * Pending rheumatologic workup-->available results are negative thus far 2) Balanitis * Likely secondary to recent antibiotic use * Start Clotrimazole topical TID 3) Acute Renal Insufficiency secondary to Rhabdomyolysis * Nephrology consulted, Dr. Garcia help appreciated * Cr 2.3 on admission, improved to 1.7 today * IVF D5 1/2NS @250ml/hr * Renal u/s: No hydronephrosis. Echogenic kidneys c/w pt's hx of renal insufficiency 4) Pneumonia-->resolved * Infectious Disease consulted, Dr. Lopez on the case-->help appreciated * Afebrile, WBC WNL today * initial CXR shows RLL atelectasis/infiltrate * Repeat CXR shows no acute active disease * Blood cultures negative x 72 hours * Rapid flu, Legionella, HIV - all negative * Pending mycoplasma Igm, pneumoniae AB * Discontinued antibiotics per ID 5) Alcoholic Hepatitis Transaminitis * GI consulted, Dr. De La Paz on the case-->help appreciated * Hepatitis panel negative * continuing to improve * monitor 6) Upper GI bleed Erosive Gastritis * GI consulted, Dr. De La Paz help appreciated * No further reported hematemesis * Stool occult blood, leukocytes, O&P negative * Endoscopy shows small hiatal hernia, acute gastritis, and erythematous duodenopathy * Regular diet * Biopsy shows mild chronic inflammation in gastric antral mucosa, negative for H. pylori * no aggressive GI workup per GI note 7) Oral candidiasis * Improving * HIV 1&2 negative * Nystatin swish/swallow QID 8) Prophylactic measures * Pepcid * SCD * Zofran * Sulcufrat 9) Cannabis Use * Patient does admit to cannabis use during rounds; unclear if related to his rhabdomyolysis or not Disposition: Will continue IV fluids since patient cannot tolerate PO intake at this time
--- NOTE | 2018-01-14 16:38 | CP.PCM.PN ---
Subjective - Date & Time of Evaluation Date of Evaluation: 01/14/18 Time of Evaluation: 16:37 - Subjective Subjective: Nephrology Consultation Note: Assessment: stable Acute Kidney Injury (N17.9) likely due to severe rhabdomyolysis: improving esophagitis and duodenitis on EGD severe non traumatic rhabdomyolysis ? illicit drug related but also r/o autoimmune causes, muscle enzymes deficiencies, genetic causes. proteinuria and microscopic hematuria Plan No acute need for renal replacement therapy at this time. BP controlled without meds No ACEI/ARB due to RADHA. continue with IVF monitor CPK daily. additional work up for rhabdo as ordered. depending upon results, later may consider further eval with rheum, neuro with EMG, muscle biopsy etc. d/w pt that suspicion for illicit drug exposure remain high grzegorz in setting of his lack of memory for few days prior to to hospitalization. doubt if anesthesia on Tuesday can have such long lasting effect. Dose meds/antibiotics for improved GFR. Avoid fleets enema/magnesium based laxatives. Avoid nephrotoxins/NSAIDs/ iodinated contrast (unless needed emergently) Glycemic control Further work up/management as per primary team pt stable for d/c from renal perspective. pt was given Rx to check labs in 5-7 days and f/up in office Thanks for allowing me to participate in care of your patient. Will follow patient with you. Please call if any Qs. had d/w team Dr Armaan Garcia Office: [phone] reason for consult: renal insuff HPI: Pt is a 37 M without any known medical hx presented with c/o blood in vomitus. he also had undergone botox inj for anal fissure last tuesday. found to have RADHA now and hence renal consulted. also with very high CPK levels Denies OTC/herbal meds or NSAIDs No recent iodinated contrast exposure. No obvious episodes of low BP. denies drug abuse such as cocaine. utox was neg as well. non smoker. admits to etoh socially over weekend only. no such episode of rhabdo in past. denies physical exertion or muscle weakness/ aches. ROS: feels better. has low appetite Cardiovascular: No chest pain. Pulmonary: No shortness of breath Gastrointestinal: denies abdominal pain improved nausea. No vomiting. had loose stool Genitourinary: No pain while urinating. Denies blood in urine. All other negative when asked about few days prior to hospitalization, he says I don't remember about it. hx mostly provided by his friend. asked about illicit drugs, he says no but doesn't remember Physical Examination: General Appearance: Comfortable, in no acute respiratory distress, co-operative . Vitals reviewed and noted as below Head; Atraumatic, normocephalic ENT: no ulcers no thrush. Tongue is coated with ulcers at lateral edges of tongue. Oropharynx: no rash or ulcers. EYES: Pupils are equal, round and reactive to light accommodation. Eye muscles and extraocular movement intact. Sclera is anicteric. Neck; supple no lymphadenopathy, no thyromegaly or bruit Lungs: Normal respiratory rate/effort. Breath sounds bilateral equal and clear Heart: Normal rate. s1s2 normal. No rub or gallop. Extremities: no edema. No varicose veins Neurological: Patient is alert, awake and oriented to person, place and time. No focal deficit. Strength bilateral appropriate and equal Skin: Warm and dry. Normal turgor. No rash. Palpitation: Normal elasticity for age Abdomen: Abdomen is soft. Bowel sounds +. There is no abdominal tenderness, no guarding/rigidity no organomegaly Psych: normal insight and normal affect/mood MSK: no joint tenderness or swelling. Digits and nails normal, no deformity : kidney or bladder not palpable Labs/imaging reviewed. Past medical history, past surgical history, family history, social history, allergy reviewed and noted as below Family hx: no hx of CKD. Rest non-contributory renal imaging WNL UA 2+ protein and 3+ blood pr/cr 1.3 gram/day CPK [id number] at presentation HIV/Hep B and C negative. C3/c4 normal Objective - Vital Signs/Intake and Output Vital Signs (last 24 hours): Temp Pulse Resp BP Pulse Ox 98 F 71 18 126/78 98 01/14/18 07:00 01/14/18 07:00 01/14/18 07:00 01/14/18 07:00 01/14/18 07:00 Intake and Output: 01/14/18 01/14/18 06:59 18:59 Intake Total 1999 115 Balance 1999 1150 - Medications Medications: Current Medications Al Hydrox/Mg Hydrox/Simethicone (Maalox Plus 30 Ml) 30 ml PO TID JEANE Last Admin: 01/14/18 13:04 Dose: 30 ml Clotrimazole (Lotrimin 1%) 0 gm TOP BID [facility] Last Admin: 01/14/18 10:28 Dose: 1 applic Famotidine (Pepcid) 20 mg PO Q12 [facility] Last Admin: 01/14/18 10:28 Dose: 20 mg Dextrose/Sodium Chloride (Dextrose 5%/0.45% Ns 1000 Ml) 1,000 mls @ 250 mls/hr IV .Q4H [facility] Last Admin: 01/14/18 12:01 Dose: 250 mls/hr Nystatin (Nystatin Oral Susp) 5 ml PO QID [facility] Last Admin: 01/14/18 13:04 Dose: 5 ml Ondansetron HCl (Zofran Inj) 8 mg IVP Q6 [facility] Last Admin: 01/14/18 12:01 Dose: 8 mg Tramadol HCl (Ultram) 50 mg PO Q6 PRN PRN Reason: Pain, severe (8-10) Last Admin: 01/14/18 13:03 Dose: 50 mg - Labs Labs: 01/14/18 06:45 01/14/18 06:45 PT 11.9 SECONDS (9.7-12.2) 01/09/18 16:44 INR 1.1 01/09/18 16:44 APTT 29 SECONDS (21-34) 01/09/18 16:44
[2018-01-15] MEDS: Dextrose 5%/0.45% NS 1,000 ML IV SCH ×4 (00:09→12:10)
--- NOTE | 2018-01-15 07:26 | CP.PCM.DIS ---
<Maria C Mcbride - Last Filed: 01/15/18 10:52> Provider - Provider Date of Admission: 01/07/18 16:53 Attending physician: Alvaro Holden MD Time Spent in preparation of Discharge (in minutes): 55 Diagnosis - Discharge Diagnosis (1) Rhabdomyolysis Status: Acute Priority: High Hospital Course - Lab Results Lab Results: Micro Results 01/07/18 17:15 Blood-Venous Blood Culture - Final NO GROWTH AFTER 5 DAYS 01/07/18 17:15 Blood-Venous Gram Stain - Final TEST NOT PERFORMED 01/07/18 17:00 Blood-Venous Blood Culture - Final NO GROWTH AFTER 5 DAYS 01/07/18 17:00 Blood-Venous Gram Stain - Final TEST NOT PERFORMED 01/08/18 19:45 Stool Stool Culture - Final NO SALMONELLA, SHIGELLA OR CAMPYLOBACTER ISOLATED. 01/08/18 19:45 Stool Ova and Parasite Concentrate Exam - Final Most Recent Lab Values WBC 6.3 K/uL (4.8-10.8) 01/14/18 06:45 RBC 4.50 Mil/uL (4.40-5.90) 01/14/18 06:45 Hgb 13.9 g/dL (12.0-18.0) 01/14/18 06:45 Hct 38.9 % (35.0-51.0) 01/14/18 06:45 MCV 86.3 fL (80.0-94.0) 01/14/18 06:45 MCH 30.9 pg (27.0-31.0) 01/14/18 06:45 MCHC 35.8 g/dL (33.0-37.0) 01/14/18 06:45 RDW 12.6 % (11.5-14.5) 01/14/18 06:45 Plt Count 183 K/uL (130-400) 01/14/18 06:45 MPV 9.4 fL (7.2-11.7) 01/14/18 06:45 Neut % (Auto) 70.3 % (50.0-75.0) 01/14/18 06:45 Lymph % (Auto) 20.1 % (20.0-40.0) 01/14/18 06:45 [place] % (Auto) 6.4 % (0.0-10.0) 01/14/18 06:45 Eos % (Auto) 3.1 % (0.0-4.0) 01/14/18 06:45 Baso % (Auto) 0.1 % (0.0-2.0) 01/14/18 06:45 Neut # (Auto) 4.4 K/uL (1.8-7.0) 01/14/18 06:45 Lymph # (Auto) 1.3 K/uL (1.0-4.3) 01/14/18 06:45 [place] # (Auto) 0.4 K/uL (0.0-0.8) 01/14/18 06:45 Eos # (Auto) 0.2 K/uL (0.0-0.7) 01/14/18 06:45 Baso # (Auto) 0.0 K/uL (0.0-0.2) 01/14/18 06:45 Neutrophils % (Manual) 90 % (50-75) H 01/08/18 17:07 Band Neutrophils % 5 % (0-2) H 01/08/18 07:39 Lymphocytes % (Manual) 6 % (20-40) L 01/08/18 17:07 Monocytes % (Manual) 4 % (0-10) 01/08/18 17:07 Platelet Estimate Normal (NORMAL) 01/08/18 17:07 Large Platelets Present 01/08/18 17:07 Giant Platelets Present 01/07/18 14:23 Polychromasia Slight 01/07/18 14:23 Anisocytosis (manual) Slight 01/08/18 17:07 ESR 30 mm/hr (0-15) H 01/11/18 06:14 PT 11.9 SECONDS (9.7-12.2) 01/09/18 16:44 INR 1.1 01/09/18 16:44 APTT 29 SECONDS (21-34) 01/09/18 16:44 Sodium 144 mmol/L (132-148) 01/14/18 06:45 Potassium 4.3 mmol/L (3.6-5.2) 01/14/18 06:45 Chloride 101 mmol/L (98-107) 01/14/18 06:45 Carbon Dioxide 31 mmol/L (22-30) H 01/14/18 06:45 Anion Gap 16 (10-20) 01/14/18 06:45 BUN 7 mg/dL (9-20) L 01/14/18 06:45 Creatinine 1.1 mg/dL (0.8-1.5) 01/14/18 06:45 Est GFR ( Amer) > 60 01/14/18 06:45 Est GFR (Non-Af Amer) > 60 01/14/18 06:45 Random Glucose 130 mg/dL (75-110) H 01/14/18 06:45 Calcium 9.2 mg/dl (8.6-10.4) 01/14/18 06:45 Phosphorus 4.0 mg/dL (2.5-4.5) 01/12/18 06:34 Magnesium 1.7 mg/dL (1.6-2.3) 01/12/18 06:34 Total Bilirubin 1.0 mg/dL (0.2-1.3) 01/14/18 06:45 Direct Bilirubin 0.4 mg/dL (0.0-0.4) 01/08/18 07:39 AST 404 U/L (17-59) H D 01/14/18 06:45 ALT 351 U/L (21-72) H D 01/14/18 06:45 Alkaline Phosphatase 46 U/L (38-126) 01/14/18 06:45 Ammonia < 9 umol/L (9-33) L 01/07/18 14:23 Total Creatine Kinase 7608 U/L (55-170) H 01/14/18 06:45 Troponin I < 0.0120 ng/mL (0.00-0.120) 01/11/18 06:14 C-Reactive Prot, Quant 19.3 mg/L (<8.0) H 01/11/18 06:14 Total Protein 6.1 g/dL (6.3-8.3) L 01/14/18 06:45 Albumin 3.2 g/dL (3.5-5.0) L 01/14/18 06:45 Globulin 2.9 gm/dL (2.2-3.9) 01/14/18 06:45 Albumin/Globulin Ratio 1.1 (1.0-2.1) 01/14/18 06:45 Amylase 83 U/L (30-110) 05/06/18 07:39 Lipase 45 U/L (23-300) 01/08/18 07:39 Free T4 1.62 ng/dL (0.78-2.19) 01/11/18 06:14 TSH 3rd Generation 1.33 mIU/L (0.46-4.68) 01/11/18 06:14 Urine Color Yellow (YELLOW) 01/09/18 20:31 Urine Clarity Clear (Clear) 01/09/18 20:31 Urine pH 6.0 (5.0-8.0) 01/09/18 20:31 Ur Specific [place] 1.009 (1.003-1.030) 01/09/18 20:31 Urine Protein 1+ mg/dL (NEGATIVE) H 01/09/18 20:31 Urine Glucose (UA) Normal mg/dL (Normal) 01/09/18 20:31 Urine Ketones Negative mg/dL (NEGATIVE) 01/09/18 20:31 Urine Blood 3+ (NEGATIVE) H 01/09/18 20:31 Urine Nitrate Negative (NEGATIVE) 01/09/18 20:31 Urine Bilirubin Negative (NEGATIVE) 01/09/18 20:31 Urine Urobilinogen Normal mg/dL (0.2-1.0) 01/09/18 20:31 Ur Leukocyte Esterase Trace Jesse/uL (Negative) 01/09/18 20:31 Urine WBC (Auto) 5 /hpf (0-5) 01/09/18 20:31 Urine RBC (Auto) 30 /hpf (0-3) H 01/09/18 20:31 Ur Squamous Epith Cells < 1 /hpf (0-5) 01/07/18 15:41 Amorphous Sediment Rare /ul (<OCC) H 01/07/18 15:41 Urine Bacteria Few (<OCC) H 01/09/18 20:31 Hyaline Casts 0-2 /lpf (0-2) 01/09/18 20:31 Ur Random Creatinine 76.0 mg/dL 01/09/18 06:35 U Random Total Protein 99.0 mg/dL (0.0-12.0) H 01/09/18 06:00 Urine Microalbumin 103.1 mg/L (0.0-16.6) H 01/09/18 06:00 Stool Occult Blood Negative (NEGATIVE) 01/08/18 21:00 Stool Leukocytes, Qual Negative (NEGATIVE) 01/08/18 15:17 Urine Opiates Screen Negative (NEGATIVE) 01/07/18 15:41 Urine Methadone Screen Negative (NEGATIVE) 01/07/18 15:41 Ur Barbiturates Screen Negative (NEGATIVE) 01/07/18 15:41 Ur Phencyclidine Scrn Negative (NEGATIVE) 01/07/18 15:41 Ur Amphetamines Screen Negative (NEGATIVE) 01/07/18 15:41 U Benzodiazepines Scrn Negative (NEGATIVE) 01/07/18 15:41 U Oth Cocaine Metabols Negative (NEGATIVE) 01/07/18 15:41 U Cannabinoids Screen Negative (NEGATIVE) 01/07/18 15:41 Alcohol, Quantitative < 10 mg/dl (0-10) 01/07/18 14:23 Rheumatoid Factor <14 IU/mL (<14) 01/10/18 06:17 Rheumatoid Factor IgG <5 U (<=6) 01/09/18 06:58 Rheumatoid Factor IgA <5 U (<=6) 01/09/18 06:58 Rheumatoid Factor IgM <5 U (<=6) 01/09/18 06:58 Cycl Citrul Peptide IgG <16 Units 01/11/18 06:14 CHEIKH Screen Negative (NEGATIVE) 01/10/18 06:17 CHEIKH Titer TNP 01/10/18 06:17 CHEIKH Nuclear Membr Pat Negative (Negative) 01/09/18 06:58 CHEKIH Pattern TNP 01/10/18 06:17 ANCA Screen Negative (NEGATIVE) 01/09/18 06:58 c-ANCA Titer TNP 01/09/18 06:58 Proteinase 3 (PR3) <1.0 AI (<1.0) 01/09/18 06:58 p-ANCA Titer TNP 01/09/18 06:58 Atypical p-ANCA Titer TNP 01/09/18 06:58 Myeloperoxidase Ab <1.0 AI (<1.0) 01/09/18 06:58 SS-A Antibody <1.0 AI (<1.0) 01/11/18 06:14 SS-B Ab Interp Negative (Negative) 01/11/18 06:14 SS-B Antibody <1.0 AI (<1.0) 01/11/18 06:14 SS-B Ab Interp Negative (Negative) 01/11/18 06:14 Sm ([place]) Antibody <1.0 neg AI (<1.0 NEGATIVE) 01/10/18 06:17 SM/S[employer]INKL[employer]QUIPMENT MECHANIC Antibody <1.0 neg AI (<1.0 NEGATIVE) 01/10/18 06:17 Scl-70 Antibody <1.0 neg AI (<1.0 NEGATIVE) 01/10/18 06:17 Double Strand DNA Ab <1 IU/mL 01/09/18 06:58 Anti-ds DNA Titer (Crith) TNP 01/10/18 06:17 Anti-ds DNA (Crithidia) Negative (NEGATIVE) 01/10/18 06:17 Ribosomal P Prot Ab <1.0 neg AI (<1.0 NEGATIVE) 01/10/18 06:17 Anti-Mitochondrial Titr TNP 01/10/18 06:17 Anti-Mitochondrial Ab Negative (NEGATIVE) 01/10/18 06:17 Actin IgG Antibody <20 U 01/10/18 06:17 Striated Muscle Ab TNP 01/10/18 06:17 Myocardial Ab Titer TNP 01/10/18 06:17 Anti-Myocardial Ab Negative (NEGATIVE) 01/10/18 06:17 Reticulin Ab Titer TNP 01/10/18 06:17 Reticulin IgA Antibody Negative (NEGATIVE) 01/10/18 06:17 Thyroperoxidase Ab 4 IU/mL (<9) 01/10/18 06:17 Thyroperoxidase Ab 3 IU/mL (<9) 01/11/18 06:14 Glomerular Base Mem IgG <1.0 AI (<1.0) 01/09/18 06:58 Anti-Parietal Cell Ab <20.0 U 01/10/18 06:17 Complement C3 112 mg/dL (82-185) 01/10/18 06:17 Complement C4 16 mg/dL (15-53) 01/10/18 06:17 Tot Complement (CH50) 60 U/mL (31-60) 01/09/18 06:58 RPR Nonreactive (NONREACTIVE) 01/12/18 06:34 Hepatitis A IgM Ab Negative (NEGATIVE) 01/08/18 17:07 Hep Bs Antigen Negative (NEGATIVE) 01/08/18 17:07 Hep B Core IgM Ab Negative (NEGATIVE) 01/08/18 17:07 Hepatitis C Antibody Negative (NEGATIVE) 01/08/18 17:07 HIV 1&2 Antibody Screen Negative (NEGATIVE) 01/08/18 17:07 Infectious [place] Assay Negative (NEGATIVE) 01/09/18 16:44 Influenza Typ A,B (EIA) Negative for flu a/b (NEGATIVE) 01/07/18 Unknown Ur L.pneumophila Ag Negative (NEGATIVE) 01/08/18 21:00 Mycoplasma pneumon IgG 1.99 (<=0.90) H 01/08/18 17:07 Mycoplasma pneumon IgM 229 U/mL (<770) 01/08/18 17:07 Anti-Staphylolysin O Negative (NEGATIVE) 01/11/18 06:14 - Hospital Course Hospital Course: Upon Admission 37 year old male is brought to the ED by ambulance for evaluation of 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 Patient underwent botox surgery to his rectal area four days ago for anal fissures. Patient notes he has been asymptomatic since then. He reports back pain (unchanged from usual) and denies fever, chills, cough. last travel to [place] 1 month ago denies ill contacs claims to be social drinker lives alone works [facility] Throughout Hospital Course 1) Rhabdomyolysis * Nephrology consulted, Dr. Garcia help appreciated * Total Cr Kinase improving * Creatinine improving * IVF D5 1/2NS @250ml/hr * renal u/s: No hydronephrosis. Echogenic kidneys c/w pt's hx of renal insufficiency * Per renal: if cpk continues to trend downwards at current rate, then tomorrow should be stable from renal prespective for discharge; He was given script for 5 -7 days and to f/u in the office. * Pending rheumatologic workup-->available results are negative thus far 2) Balanitis * Likely secondary to recent antibiotic use * Start Clotrimazole topical TID 3) Acute Renal Insufficiency secondary to Rhabdomyolysis * Nephrology consulted, Dr. Garcia help appreciated * Cr 2.3 on admission, improved to 1.7 today * IVF D5 1/2NS @250ml/hr * Renal u/s: No hydronephrosis. Echogenic kidneys c/w pt's hx of renal insufficiency 4) Pneumonia-->resolved * Infectious Disease consulted, Dr. Lopez on the case-->help appreciated * Afebrile, WBC WNL today * initial CXR shows RLL atelectasis/infiltrate * Repeat CXR shows no acute active disease * Blood cultures negative x 72 hours * Rapid flu, Legionella, HIV - all negative * Pending mycoplasma Igm, pneumoniae AB * Discontinued antibiotics per ID 5) Alcoholic Hepatitis Transaminitis * GI consulted, Dr. De La Paz on the case-->help appreciated * Hepatitis panel negative * continuing to improve * monitor 6) Upper GI bleed Erosive Gastritis * GI consulted, Dr. De La Paz help appreciated * No further reported hematemesis * Stool occult blood, leukocytes, O&P negative * Endoscopy shows small hiatal hernia, acute gastritis, and erythematous duodenopathy * Regular diet * Biopsy shows mild chronic inflammation in gastric antral mucosa, negative for H. pylori * no aggressive GI workup per GI note 7) Oral candidiasis * Improving * HIV 1&2 negative * Nystatin swish/swallow QID 8) Prophylactic measures * Pepcid * SCD * Zofran * Sulcufrat 9) Cannabis Use * Patient does admit to cannabis use during rounds; unclear if related to his rhabdomyolysis or not Please review EMR for full record, as this was a brief summary of the patient's hospital course. Discharge Exam - Additional Findings Additional findings: - Constitutional Appears: Non-toxic, No Acute Distress - Head Exam Head Exam: ATRAUMATIC, NORMOCEPHALIC - Eye Exam Eye Exam: EOMI, Normal appearance - ENT Exam Additional comments: Leukoplakia improving, no tenderness - Neck Exam Neck Exam: absent: Lymphadenopathy - Respiratory Exam Respiratory Exam: NORMAL BREATHING PATTERN. absent: Wheezes, Respiratory Distress - no rales appreciated - Cardiovascular Exam Cardiovascular Exam: REGULAR RHYTHM, +S1, +S2 - GI/Abdominal Exam GI & Abdominal Exam: Soft. absent: Tenderness - Extremities Exam Extremities Exam: Normal Capillary Refill. absent: Joint Swelling, Tenderness - Neurological Exam Neurological Exam: Alert, Awake, Oriented x3 - Psychiatric Exam Psychiatric exam: Normal Affect, Normal Mood - Skin Skin Exam: Dry, Normal Color Discharge Plan - Discharge Medications Prescriptions: RX: Clotrimazole 1% Cream [Lotrimin 1%] 1 gm TOP BID #1 tube RX: Nystatin [Nystatin Oral Susp] 5 ml PO QID #240 ml Ondansetron ODT [Zofran ODT] 8 mg PO Q8H PRN #15 odt PRN Reason: Nausea/Vomiting RX: Sucralfate [Carafate Tab] 1 gm PO QID #120 tab - Follow Up Plan Condition: GOOD Disposition: HOME/ ROUTINE Instructions: Clotrimazole (Topical), Pneumonia, Adult (DC), Rhabdomyolysis (DC ), Fluconazole, Sucralfate Additional Instructions: You are to continue the following medications: Sucralfate 1 gram 4 times a day with each meal ( to help coat your stomach, to protect the lining) I have provided you with 1 month. Your Primary Care Doctor can prescribed you another month supply (recommended length is 8 weeks). Lotrimin cream apply twice a day for 1 week, please keep affected area clean and dry You will have blood work drawn with Dr. Garcia the Field Map Technician (kidney Doctor), after you have the blood work done he will look at your kidney and liver function. As long as your liver function continues to improve, you can continue / resume taking the Diflucan 100mg by mouth x 13 days. Please follow up with your primary care Doctor within 1 -2 weeks for routine follow up, continue with routine screenings. Please take care and be well. Referrals: Neftaly De La Paz [Staff Provider] - Armaan Garcia MD [Staff Provider] - Dawit Lopez MD [Staff Provider] - <Tatyana Lima V - Last Filed: 01/15/18 12:30> Provider - Provider Date of Admission: 01/07/18 16:53 Attending physician: Alvaro Holden MD Hospital Course - Lab Results Lab Results: Micro Results 01/07/18 17:15 Blood-Venous Blood Culture - Final NO GROWTH AFTER 5 DAYS 01/07/18 17:15 Blood-Venous Gram Stain - Final TEST NOT PERFORMED 01/07/18 17:00 Blood-Venous Blood Culture - Final NO GROWTH AFTER 5 DAYS 01/07/18 17:00 Blood-Venous Gram Stain - Final TEST NOT PERFORMED 01/08/18 19:45 Stool Stool Culture - Final NO SALMONELLA, SHIGELLA OR CAMPYLOBACTER ISOLATED. 01/08/18 19:45 Stool Ova and Parasite Concentrate Exam - Final Most Recent Lab Values WBC 6.3 K/uL (4.8-10.8) 01/14/18 06:45 RBC 4.50 Mil/uL (4.40-5.90) 01/14/18 06:45 Hgb 13.9 g/dL (12.0-18.0) 01/14/18 06:45 Hct 38.9 % (35.0-51.0) 01/14/18 06:45 MCV 86.3 fL (80.0-94.0) 01/14/18 06:45 MCH 30.9 pg (27.0-31.0) 01/14/18 06:45 MCHC 35.8 g/dL (33.0-37.0) 01/14/18 06:45 RDW 12.6 % (11.5-14.5) 01/14/18 06:45 Plt Count 183 K/uL (130-400) 01/14/18 06:45 MPV 9.4 fL (7.2-11.7) 01/14/18 06:45 Neut % (Auto) 70.3 % (50.0-75.0) 01/14/18 06:45 Lymph % (Auto) 20.1 % (20.0-40.0) 01/14/18 06:45 [place] % (Auto) 6.4 % (0.0-10.0) 01/14/18 06:45 Eos % (Auto) 3.1 % (0.0-4.0) 01/14/18 06:45 Baso % (Auto) 0.1 % (0.0-2.0) 01/14/18 06:45 Neut # (Auto) 4.4 K/uL (1.8-7.0) 01/14/18 06:45 Lymph # (Auto) 1.3 K/uL (1.0-4.3) 01/14/18 06:45 [place] # (Auto) 0.4 K/uL (0.0-0.8) 01/14/18 06:45 Eos # (Auto) 0.2 K/uL (0.0-0.7) 01/14/18 06:45 Baso # (Auto) 0.0 K/uL (0.0-0.2) 01/14/18 06:45 Neutrophils % (Manual) 90 % (50-75) H 01/08/18 17:07 Band Neutrophils % 5 % (0-2) H 01/08/18 07:39 Lymphocytes % (Manual) 6 % (20-40) L 01/08/18 17:07 Monocytes % (Manual) 4 % (0-10) 01/08/18 17:07 Platelet Estimate Normal (NORMAL) 01/08/18 17:07 Large Platelets Present 01/08/18 17:07 Giant Platelets Present 01/07/18 14:23 Polychromasia Slight 01/07/18 14:23 Anisocytosis (manual) Slight 01/08/18 17:07 ESR 30 mm/hr (0-15) H 01/11/18 06:14 PT 11.9 SECONDS (9.7-12.2) 01/09/18 16:44 INR 1.1 01/09/18 16:44 APTT 29 SECONDS (21-34) 01/09/18 16:44 Sodium 144 mmol/L (132-148) 01/14/18 06:45 Potassium 4.3 mmol/L (3.6-5.2) 01/14/18 06:45 Chloride 101 mmol/L (98-107) 01/14/18 06:45 Carbon Dioxide 31 mmol/L (22-30) H 01/14/18 06:45 Anion Gap 16 (10-20) 01/14/18 06:45 BUN 7 mg/dL (9-20) L 01/14/18 06:45 Creatinine 1.1 mg/dL (0.8-1.5) 01/14/18 06:45 Est GFR ( Amer) > 60 01/14/18 06:45 Est GFR (Non-Af Amer) > 60 01/14/18 06:45 Random Glucose 130 mg/dL (75-110) H 01/14/18 06:45 Calcium 9.2 mg/dl (8.6-10.4) 01/14/18 06:45 Phosphorus 4.0 mg/dL (2.5-4.5) 01/12/18 06:34 Magnesium 1.7 mg/dL (1.6-2.3) 01/12/18 06:34 Total Bilirubin 1.0 mg/dL (0.2-1.3) 01/14/18 06:45 Direct Bilirubin 0.4 mg/dL (0.0-0.4) 01/08/18 07:39 AST 404 U/L (17-59) H D 01/14/18 06:45 ALT 351 U/L (21-72) H D 01/14/18 06:45 Alkaline Phosphatase 46 U/L (38-126) 01/14/18 06:45 Ammonia < 9 umol/L (9-33) L 01/07/18 14:23 Total Creatine Kinase 3836 U/L (55-170) H 01/15/18 07:27 Troponin I < 0.0120 ng/mL (0.00-0.120) 01/11/18 06:14 C-Reactive Prot, Quant 19.3 mg/L (<8.0) H 01/11/18 06:14 Total Protein 6.1 g/dL (6.3-8.3) L 01/14/18 06:45 Albumin 3.2 g/dL (3.5-5.0) L 01/14/18 06:45 Globulin 2.9 gm/dL (2.2-3.9) 01/14/18 06:45 Albumin/Globulin Ratio 1.1 (1.0-2.1) 01/14/18 06:45 Amylase 83 U/L (30-110) 01/08/18 07:39 Lipase 45 U/L (23-300) 01/08/18 07:39 Free T4 1.62 ng/dL (0.78-2.19) 01/11/18 06:14 TSH 3rd Generation 1.33 mIU/L (0.46-4.68) 01/11/18 06:14 Urine Color Yellow (YELLOW) 01/09/18 20:31 Urine Clarity Clear (Clear) 01/09/18 20:31 Urine pH 6.0 (5.0-8.0) 01/09/18 20:31 Ur Specific [place] 1.009 (1.003-1.030) 01/09/18 20:31 Urine Protein 1+ mg/dL (NEGATIVE) H 01/09/18 20:31 Urine Glucose (UA) Normal mg/dL (Normal) 01/09/18 20:31 Urine Ketones Negative mg/dL (NEGATIVE) 01/09/18 20:31 Urine Blood 3+ (NEGATIVE) H 01/09/18 20:31 Urine Nitrate Negative (NEGATIVE) 01/09/18 20:31 Urine Bilirubin Negative (NEGATIVE) 01/09/18 20:31 Urine Urobilinogen Normal mg/dL (0.2-1.0) 01/09/18 20:31 Ur Leukocyte Esterase Trace Jesse/uL (Negative) 01/09/18 20:31 Urine WBC (Auto) 5 /hpf (0-5) 01/09/18 20:31 Urine RBC (Auto) 30 /hpf (0-3) H 01/09/18 20:31 Ur Squamous Epith Cells < 1 /hpf (0-5) 01/07/18 15:41 Amorphous Sediment Rare /ul (<OCC) H 01/07/18 15:41 Urine Bacteria Few (<OCC) H 01/09/18 20:31 Hyaline Casts 0-2 /lpf (0-2) 01/09/18 20:31 Ur Random Creatinine 76.0 mg/dL 01/09/18 06:35 U Random Total Protein 99.0 mg/dL (0.0-12.0) H 01/09/18 06:00 Urine Microalbumin 103.1 mg/L (0.0-16.6) H 01/09/18 06:00 Stool Occult Blood Negative (NEGATIVE) 01/08/18 21:00 Stool Leukocytes, Qual Negative (NEGATIVE) 01/08/18 15:17 Urine Opiates Screen Negative (NEGATIVE) 01/07/18 15:41 Urine Methadone Screen Negative (NEGATIVE) 01/07/18 15:41 Ur Barbiturates Screen Negative (NEGATIVE) 01/07/18 15:41 Ur Phencyclidine Scrn Negative (NEGATIVE) 01/07/18 15:41 Ur Amphetamines Screen Negative (NEGATIVE) 01/07/18 15:41 U Benzodiazepines Scrn Negative (NEGATIVE) 01/07/18 15:41 U Oth Cocaine Metabols Negative (NEGATIVE) 01/07/18 15:41 U Cannabinoids Screen Negative (NEGATIVE) 01/07/18 15:41 Alcohol, Quantitative < 10 mg/dl (0-10) 01/07/18 14:23 Rheumatoid Factor <14 IU/mL (<14) 01/10/18 06:17 Rheumatoid Factor IgG <5 U (<=6) 01/09/18 06:58 Rheumatoid Factor IgA <5 U (<=6) 01/09/18 06:58 Rheumatoid Factor IgM <5 U (<=6) 01/09/18 06:58 Cycl Citrul Peptide IgG <16 Units 01/11/18 06:14 CHEIKH Screen Negative (NEGATIVE) 01/10/18 06:17 CHEIKH Titer TNP 01/10/18 06:17 CHEIKH Nuclear Membr Pat Negative (Negative) 01/09/18 06:58 CHEIKH Pattern TNP 01/10/18 06:17 ANCA Screen Negative (NEGATIVE) 01/09/18 06:58 c-ANCA Titer TNP 01/09/18 06:58 Proteinase 3 (PR3) <1.0 AI (<1.0) 01/09/18 06:58 p-ANCA Titer TNP 01/09/18 06:58 Atypical p-ANCA Titer TNP 01/09/18 06:58 Myeloperoxidase Ab <1.0 AI (<1.0) 01/09/18 06:58 SS-A Antibody <1.0 AI (<1.0) 01/11/18 06:14 SS-B Ab Interp Negative (Negative) 01/11/18 06:14 SS-B Antibody <1.0 AI (<1.0) 01/11/18 06:14 SS-B Ab Interp Negative (Negative) 01/11/18 06:14 Sm ([place]) Antibody <1.0 neg AI (<1.0 NEGATIVE) 01/10/18 06:17 SM/S[employer]INKL[employer]QUIPMENT MECHANIC Antibody <1.0 neg AI (<1.0 NEGATIVE) 01/10/18 06:17 Scl-70 Antibody <1.0 neg AI (<1.0 NEGATIVE) 01/10/18 06:17 Double Strand DNA Ab <1 IU/mL 01/09/18 06:58 Anti-ds DNA Titer (Crith) TNP 01/10/18 06:17 Anti-ds DNA (Crithidia) Negative (NEGATIVE) 01/10/18 06:17 Ribosomal P Prot Ab <1.0 neg AI (<1.0 NEGATIVE) 01/10/18 06:17 Anti-Mitochondrial Titr TNP 01/10/18 06:17 Anti-Mitochondrial Ab Negative (NEGATIVE) 01/10/18 06:17 Actin IgG Antibody <20 U 01/10/18 06:17 Striated Muscle Ab TNP 01/10/18 06:17 Myocardial Ab Titer TNP 01/10/18 06:17 Anti-Myocardial Ab Negative (NEGATIVE) 01/10/18 06:17 Reticulin Ab Titer TNP 01/10/18 06:17 Reticulin IgA Antibody Negative (NEGATIVE) 01/10/18 06:17 Thyroperoxidase Ab 4 IU/mL (<9) 01/10/18 06:17 Thyroperoxidase Ab 3 IU/mL (<9) 01/11/18 06:14 Glomerular Base Mem IgG <1.0 AI (<1.0) 01/09/18 06:58 Anti-Parietal Cell Ab <20.0 U 01/10/18 06:17 Complement C3 112 mg/dL (82-185) 01/10/18 06:17 Complement C4 16 mg/dL (15-53) 01/10/18 06:17 Tot Complement (CH50) 60 U/mL (31-60) 01/09/18 06:58 RPR Nonreactive (NONREACTIVE) 01/12/18 06:34 Hepatitis A IgM Ab Negative (NEGATIVE) 01/08/18 17:07 Hep Bs Antigen Negative (NEGATIVE) 01/08/18 17:07 Hep B Core IgM Ab Negative (NEGATIVE) 01/08/18 17:07 Hepatitis C Antibody Negative (NEGATIVE) 01/08/18 17:07 HIV 1&2 Antibody Screen Negative (NEGATIVE) 01/08/18 17:07 Infectious [place] Assay Negative (NEGATIVE) 01/09/18 16:44 Influenza Typ A,B (EIA) Negative for flu a/b (NEGATIVE) 01/07/18 Unknown Ur L.pneumophila Ag Negative (NEGATIVE) 01/08/18 21:00 Mycoplasma pneumon IgG 1.99 (<=0.90) H 01/08/18 17:07 Mycoplasma pneumon IgM 229 U/mL (<770) 01/08/18 17:07 Anti-Staphylolysin O Negative (NEGATIVE) 01/11/18 06:14 Attending/Attestation - Attestation I have personally seen and examined this patient.: Yes I have fully participated in the care of the patient.: Yes I have reviewed all pertinent clinical information, including history, physical exam and plan: Yes Notes (Text): Hospitalist Service Covering Dr. Holden until (01/16/18) Patient seen and examined with the resident. Patient reports he is feeling better. Patient reports 1.5 Liter in the hospital. Patient encouraged to continue PO hydration at home. Patient encouraged to not take Tylenol, NSAIDS until his liver numbers normalized. Discussed with patient, he will make appointment with Dr. Garcia this upcoming to monitor the CPK. Medications upon discharge: 1) Zofran 8mg PO Q8H PRN nausea/vomitting (15 tabs/0) 2) Nystatin swish and swallow 5ml PO QID PRN (240 cc/0 refill) 3) Sulcrafte 1 gram PO QID (30 days) 4) Clomtriazole 1g topical tid (1 tube) Advised to not take Tylenol/NSAIDs until liver function tests are repeated. Patient recommended to f/u nephrology to check CPK. This is a summary of patient's hospitalization. Please see EMR for further details. Discharge Diagnoses: 1) Rhabdomyolysis * Nephrology consulted, Dr. Garcia help appreciated * Rheumatology consulted, Dr. Greene, help appreciated * Total Cr Kinase improving * Creatinine improving * IVF D5 1/2NS @250ml/hr * renal u/s: No hydronephrosis. Echogenic kidneys c/w pt's hx of renal insufficiency * Per renal: if cpk continues to trend downwards at current rate, then tomorrow should be stable from renal prespective for discharge; He was given script for 5 -7 days and to f/u in the office. * Pending rheumatologic workup-->negativer 2) Balanitis * Likely secondary to recent antibiotic use * Start Clotrimazole topical TID 3) Acute Renal Insufficiency secondary to Rhabdomyolysis * Nephrology consulted, Dr. Garcia help appreciated * normalized and downtrending cpk * IVF D5 1/2NS @250ml/hr * Renal u/s: No hydronephrosis. Echogenic kidneys c/w pt's hx of renal insufficiency 4) Pneumonia-->resolved * Infectious Disease consulted, Dr. Lopez on the case-->help appreciated * Afebrile, WBC WNL today * initial CXR shows RLL atelectasis/infiltrate * Repeat CXR shows no acute active disease * Blood cultures negative x 72 hours * Rapid flu, Legionella, HIV - all negative * Pending mycoplasma Igm, pneumoniae AB * Discontinued antibiotics per ID 5) Alcoholic Hepatitis Transaminitis * GI consulted, Dr. De La Paz on the case-->help appreciated-->no oncology workup needed; discussed w gi * Hepatitis panel negative * continuing to improve * monitor 6) Upper GI bleed Erosive Gastritis * GI consulted, Dr. De La Paz help appreciated * No further reported hematemesis * Stool occult blood, leukocytes, O&P negative * Endoscopy shows small hiatal hernia, acute gastritis, and erythematous duodenopathy * Regular diet * Biopsy shows mild chronic inflammation in gastric antral mucosa, negative for H. pylori * no aggressive GI workup per GI note 7) Oral candidiasis * Improving * HIV 1&2 negative * Nystatin swish/swallow QID 8) Prophylactic measures * Pepcid * SCD * Zofran * Sulcufrat 9) Cannabis Use * Patient does admit to cannabis use during rounds; unclear if related to his rhabdomyolysis or not * Advised strongly to stop
[2018-01-15 08:02] VITALS: BP 127/70; PULSE 75; RESP 18; TEMP 98; O2SAT 98
--- NOTE | 2018-01-15 09:02 | CP.PCM.CON ---
History of Present Illness - History of Present Illness History of Present Illness: 37 year old male admitted with hematemess, back pain , muscle pain and fatigue. Initial creatinine kinase level 67,409. Working diagnosis of rhabdomyoysis. Patient was started on IV fluids and antibiotics. He was also evaluated for esophagitis, duodenitis, protinuria and acute kidney injury. Possible association to connective tissue was explored. Lupus panel and rheumatoid panel did not reveal any abnormal results. Review of Systems - Review of Systems Systems not reviewed;Unavailable: Other (muscle pain and fatigue) - Constitutional Constitutional: Fatigue, Weakness - EENT Nose/Mouth/Throat: Facial Pain - Cardiovascular Cardiovascular: Lightheadedness - Respiratory Respiratory: Pain on Inspiration - Gastrointestinal Gastrointestinal: Hematemesis - Musculoskeletal Musculoskeletal: Back Pain, Myalgias - Integumentary Integumentary: Dry Skin Past Patient History - Past Medical History & Family History Past Medical History?: No - Past Social History Smoking Status: Never Smoked Chewing Tobacco Use: No Cigar Use: No Alcohol: Social Drugs: Denies Home Situation {Lives}: Alone - MUSCULOSKELETAL/RHEUMATOLOGICAL Hx Falls: No - PSYCHIATRIC Hx Substance Use: No - SURGICAL HISTORY Hx Surgeries: Yes Other/Comment: ANAL FISSURE - ANESTHESIA Hx Anesthesia: Yes Hx Anesthesia Reactions: No Hx Malignant Hyperthermia: No Has any member of the family had a problem w/ anesthesia?: No Meds Home Medications: Home Medication List Medication Instructions Recorded Confirmed Type Clotrimazole 1% Cream [Lotrimin 1%] 1 gm TOP BID #1 tube 01/15/18 Rx Fluconazole [Diflucan] 100 mg PO DAILY #13 tab 01/15/18 Rx Allergies/Adverse Reactions: Allergies Allergy/AdvReac Type Severity Reaction Status Date / Time No Known Allergies Allergy Verified 01/07/18 13:56 - Medications Medications: Current Medications Al Hydrox/Mg Hydrox/Simethicone (Maalox Plus 30 Ml) 30 ml PO TID [facility] Last Admin: 01/14/18 18:09 Dose: 30 ml Clotrimazole (Lotrimin 1%) 0 gm TOP BID [facility] Last Admin: 01/14/18 18:10 Dose: 1 applic Famotidine (Pepcid) 20 mg PO Q12 [facility] Last Admin: 01/14/18 22:50 Dose: 20 mg Fluconazole (Diflucan) 200 mg PO ONCE ONE PRN Reason: Protocol Stop: 01/15/18 10:01 Dextrose/Sodium Chloride (Dextrose 5%/0.45% Ns 1000 Ml) 1,000 mls @ 250 mls/hr IV .Q4H [facility] Last Admin: 01/15/18 04:19 Dose: 250 mls/hr Nystatin (Nystatin Oral Susp) 5 ml PO QID [facility] Last Admin: 01/14/18 22:50 Dose: 5 ml Ondansetron HCl (Zofran Inj) 8 mg IVP Q6 [facility] Last Admin: 01/15/18 06:24 Dose: 8 mg Tramadol HCl (Ultram) 50 mg PO Q6 PRN PRN Reason: Pain, severe (8-10) Last Admin: 01/15/18 00:54 Dose: 50 mg Physical Exam - Constitutional Appears: No Acute Distress - Head Exam Head Exam: NORMOCEPHALIC - Eye Exam Eye Exam: Normal appearance - ENT Exam ENT Exam: Normal Exam - Neck Exam Neck exam: Positive for: Normal Inspection - Respiratory Exam Respiratory Exam: NORMAL BREATHING PATTERN - Cardiovascular Exam Cardiovascular Exam: REGULAR RHYTHM - GI/Abdominal Exam GI & Abdominal Exam: Normal Bowel Sounds - Rectal Exam Rectal Exam: Deferred - Exam Exam: NORMAL INSPECTION - Extremities Exam Extremities exam: Positive for: tenderness - Back Exam Back exam: tenderness - Neurological Exam Neurological exam: Oriented x3 - Skin Skin Exam: Dry Results - Vital Signs Recent Vital Signs: Last Vital Signs Temp 98.0 F 01/15/18 07:00 Pulse 75 01/15/18 07:00 Resp 18 01/15/18 07:00 BP 127/70 01/15/18 07:00 Pulse Ox 98 01/15/18 07:00 - Labs Result Diagrams: 01/14/18 06:45 01/14/18 06:45 Labs: Laboratory Results - last 24 hr 01/10/18 01/15/18 06:17 07:27 Total Creatine Kinase 3836 H Anti-ds DNA Titer (Crith) TNP Anti-ds DNA (Crithidia) Negative Anti-Mitochondrial Titr TNP Anti-Mitochondrial Ab Negative Striated Muscle Ab TNP Anti-Myocardial Ab Negative Anti-Parietal Cell Ab <20.0 Assessment & Plan (1) Hematemesis Status: Resolved Priority: Low (2) Acute renal insufficiency Status: Acute (3) Pneumonia Status: Acute Priority: Medium (4) Rhabdomyolysis Status: Acute Priority: High
[2018-01-15] MEDS: Nystatin 100,000 Units/ml Oral Susp 5 ml UD PO SCH ×2 (09:28→13:00)
[2018-01-15] MEDS: Alum-Mag Hydrox-Simethicone Susp (30 mL) PO SCH ×2 (09:28→13:00)
[2018-01-15] MEDS: Clotrimazole 1% Cream(30 gm) TOP SCH (10:43)
[2018-01-15 12:29] LABS: ALB/GLOB RATIO 1.1 (1.0-2.1); ALBUMIN 3.2 g/dL (3.5-5.0); ALT/SGPT 267 U/L (21-72); AST/SGOT 198 U/L (17-59); BLOOD UREA NITROGEN 6 mg/dL (9-20); CALCIUM 8.8 mg/dl (8.6-10.4); GFR AFRICAN-AMERICAN > 60; GFR NON-AFRICAN AMERICAN > 60
[2018-01-15] MEDS ORDERED: Potassium Chloride 20 mEq ER Tab PO ONE (12:32)
--- NOTE | 2018-01-15 12:32 | PN ---
DATE: LOCATION: 652, bed A SUBJECTIVE: This is a 37-year-old male, seen and examined in rounds without significant clinical changes, with much less abdominal pain, with subsequent improvement in his liver function test as well as decreased total creatine kinase level, but low albumin and low total protein, complaining intermittent period of nausea with dyspepsia. No chest pain, palpitations, significant shortness of breath. No reported active bleeding, but less oral intake recently. PHYSICAL EXAMINATION: GENERAL/VITAL SIGNS: A 37-year-old male, afebrile with pulse of 70, respiratory rate of 18 to 20, blood pressure of 124/68. HEENT: Showed pale, dry, mucous membranes. Nonicteric sclerae. LUNGS: Few scattered crepitation. Decreased air entry at bases. HEART: Positive S1 and S2. ABDOMEN: Soft with slight distention, with mild tenderness. No mass or organomegaly. Bowel sounds are present. EXTREMITIES: Without edema, clubbing, or cyanosis. NEUROLOGIC: No reported new neurological deficits, sensory or motor. No reported new neurological deficits. IMPRESSION: 1. Rhabdomyolysis, improving gradually. 2. Alcoholism with alcoholic liver disease. 3. Acute renal insufficiency, improving. 4. Pneumonia by recent history. 5. Acute alcoholic hepatitis, gradually improving with abnormal liver function test. 6. Peptic ulcer disease with oral candidiasis. SUGGESTIONS: 1. Agree with your plan. 2. The patient will be discharged , to be followed by his primary MD outpatient with repeat liver function test. 3. Further recommendations to follow. Neftaly Ochoa MD
== END 2018-01-15 13:51 | disposition home or self-care (01) | DRG 557 ==
LOC: C.ER 13:44 → C.6T 16:53
PROVIDERS: ADMIT Internal Medicine Pulmonary Disease; ATTEND Internal Medicine Pulmonary Disease
PROC: 0DB68ZX Excision of Stomach, Via Natural or Artificial Opening Endoscopic, Diagnostic (ICD-10-PCS; principal; 2018-01-09 13:23)
DX: M62.82 Rhabdomyolysis (principal); K85.90 Acute pancreatitis without necrosis or infection, unspecified; J18.9 Pneumonia, unspecified organism; K92.0 Hematemesis; B37.0 Candidal stomatitis; N17.9 Acute kidney failure, unspecified; J98.11 Atelectasis; J44.0 Chronic obstructive pulmonary disease with (acute) lower respiratory infection; E86.0 Dehydration; F10.20 Alcohol dependence, uncomplicated; N48.1 Balanitis; T36.95XA Adverse effect of unspecified systemic antibiotic, initial encounter; K70.10 Alcoholic hepatitis without ascites; F12.90 Cannabis use, unspecified, uncomplicated; K29.00 Acute gastritis without bleeding; K27.9 Peptic ulcer, site unspecified, unspecified as acute or chronic, without hemorrhage or perforation; K29.80 Duodenitis without bleeding; K44.9 Diaphragmatic hernia without obstruction or gangrene; M60.9 Myositis, unspecified; R31.29 Other microscopic hematuria